=== PATIENT | female | born 1955 | race Hispanic/Latino ===

== ENCOUNTER 2020-09-23 09:57 | Emergency (ER) | payer OTHER ==
--- OUTSIDE RECORDS SUMMARY | 2020-09-23 09:59 | XMS REPORT | Continuity of Care Document ---
:[address] [facility] t Address [address] [place] [address] Dr. Segura. [address] [place] [address] Care Team Providers Name Role Phone Lab, Kar Salmoon I Attending Clinician Unavailable Problems This patient has no known problems. Allergies, Adverse Reactions, Alerts This patient has no known allergies or adverse reactions. Medications This patient has no known medications. Procedures This patient has no known procedures. Encounters Start End Encounter Admission Attending Care Care Encounter Source Date/Time Date/Time Type Type Clinicians Facility Department ID 2020-09-17 2020-09-17 Laboratory Lab, [facility] [id number] 13:16:13 13:36:13 Only Fam Pob I [facility] [id number] [place] [id number] [place] [phone] nal [address] One Results This patient has no known results.
--- OUTSIDE RECORDS SUMMARY | 2020-09-23 09:59 | XMS REPORT | Summary of Care ---
:1955 Author Organization [facility] Address [address] [place] [id number] Care Team Providers Name Role Phone Pcp, Patient Does Not Have A Primary Care Provider +[id number] Reason for Visit Reason Comments Cough Fever low grade 99 to 100.0 Chills Encounter Details Date Type Department Care Team Description 09/17/2020 Laboratory Only [facility] Kimmy Mike, LICENSED MARRIAGE AND FAMILY THERAPIST [address] [facility] [address] [place] [address] Exposure to Medicine - [facility], Adc Fam Pob I SARS-associated [address] [facility] coronaviru s ([address] Dx) [place] [address] Allergies Not on Filedocumented as of this encounter (statuses as of 09/17/2020) Medications Not on filedocumented as of this encounter (statuses as of 09/17/2020) Active Problems Not on filedocumented as of this encounter (statuses as of 09/17/2020) Social History Tobacco Use Types Packs/Day Years Used Date Never Assessed Sex Assigned at Date Recorded Not on file COVID-19 Exposure Response Date Recorded In the last month, have you been in contact with Yes 09/17/2020 1:20 PM EARRING MAKER someone who was confirmed or suspected to have Coronavirus / COVID-19? documented as of this encounter Last Filed Vital Signs Not on filedocumented in this encounter Nursing Notes Maricruz Tolbert, RITO - 09/17/2020 1:00 PM CSTTori Sylvester is a 65 year old female here for a Rule Out Covid-19 Nasopharyngeal Swab. Patient educated on plan of care for visit, swabbing technique, risks and benefits of test and length of time to receive results. Verbal consent obtained to perform test. CDC Fact Sheet for Patients provided to patient. All droplet and contact precautions taken with appropriate PPE worn while interacting with patient. - Goggles - N95 Mask - Gloves - Gown RR=18 O2 Sat=96% Patient swabbed using appropriate nasopharyngeal technique, and patient tolerated well. Patient was discharged in stable condition. Maricruz Kinney RN 09/17/2020 1:22 PM ING MAKER documented in this encounter Plan of Treatment Name Type Priority Associated Diagnoses Order S [place] COVID-19 (MOLECULAR LAB Routine Exposure to Expected : 09/17/2020, TESTING SARS-associated Expires: 021 NUCLEIC ACID coronavirus AMPLIFICATION) Health Maintenance Due Date Last Done Comments HEPATITIS C (HCV) SCREEN 1955 Depression Screening 1966 DTaP,Tdap,and Td Vaccines (1 - Tdap) 1973 Breast Cancer Screening (MAMMOGRAM) 1994 COLON CANCER SCREENING ANNUAL FIT/FOBT 2004 COLON CANCER SCREENING FIT DNA EVERY 3 YEARS 2004 COLON CANCER SCREENING SIGMOIDOSCOPY EVERY 5 YEARS 2004 COLONOSCOPY 2004 Colorectal Cancer Screening 2004 Zoster Recombinant Vaccine (SHINGRIX) (1 of 2) 2004 Medicare Wellness Visit 2019 Osteoporosis Screening 2019 PNEUMOCOCCAL VACCINES 65+ (1 of 1 - PPSV23) 2019 INFLUENZA VACCINE (#1) 2020 documented as of this encounter Results Not on filedocumented in this encounter Visit Diagnoses Diagnosis Exposure to SARS-associated coronavirus - Primary documented in this encounter Additional Health Concerns Infection Onset Date Last Indicated Resolved Time COVID-19 Rule Out 09/17/2020 09/17/2020 documented as of this encounter Insurance Payer Benefit Plan / Subscriber ID Effective Dates Phone Addre ss Type [employer] [id number] 2019-Present Medicare Adv spring HMO documented as of this encounter
[2020-09-23] MEDS ORDERED: NA CHLORIDE 0.9% 1,000 ML ONE (12:03)
[2020-09-23 12:43] LABS: Absolute Lymphocytes (CBC) 0.6 K/uL (0.7-4.9); Basophils % 0.3 % (0-1.3); Hematocrit 34.1 % (36.0-45.0); Lymphocytes % 13.2 % (15.3-44.8); MPV 9.1 fL (7.6-11.3); RBC Red Blood Cell Count 4.17 M/uL (3.86-4.86)
[2020-09-23 12:53] LABS: Protime INR 1.13
--- NOTE | 2020-09-23 13:41 | RAD REPORT ---
EXAM DESCRIPTION: Devika Single View09/23/2020 11:51 am CLINICAL HISTORY: sob COMPARISON: July 2020 FINDINGS: Dcmc-da-lpamievy bilateral pulmonary opacities Heart is normal size IMPRESSION: Mild to moderate bilateral pulmonary opacities likely pneumonia
[2020-09-23 15:35] LABS: Urine Blood TRACE (NEG); Urine Glucose NEGATIVE (NEG); Urine Protein NEGATIVE (NEG); Urine Specific Gravity 1.005 (1.005-1.030); Urine pH 5.5 (5.0-7.0)
[2020-09-23 16:01] LABS: ALT/SGPT 133 U/L (12-78); AST/SGOT 227 U/L (15-37); Albumin 3.5 g/dL (3.4-5.0); Alkaline Phosphatase 189 U/L (45-117); BUN Blood Urea Nitrogen 19 mg/dL (7-18); Bicarbonate 25 mmol/L (21-32); Bilirubin Direct 0.2 mg/dL (0-0.2); Bilirubin Total 0.5 mg/dL (0.2-1.0); Ferritin 553.5 ng/mL (8-388); Glucose Level 121 mg/dL (74-106); Lipase 172 U/L (73-393); Potassium 3.1 mmol/L (3.5-5.1); Sodium Level 138 mmol/L (136-145); Troponin (Emerg Dept Use Only) < 0.02 ng/mL (0.0-0.045)
[2020-09-23] MEDS ORDERED: CEFTRIAXONE/SWI 1gm 1 GM/10 ML SYR ONE (16:09)
--- NOTE | 2020-09-23 16:13 | ER ---
Nurse's Notes [facility] Name: Tori Sylvester Age: 65 yrs Sex: Female : 1955 Arrival Date: 09/23/2020 Time: 10:00 Bed 14 Private MD: Diagnosis: Urinary tract infection, site not specified;Pneumonia due to SARS-associated coronavirus Presentation: 09/23 10:12 Chief complaint: Patient states: + COVID on 09/17/20. Pt reports that since she was ss diagnosed with COVID she has been running a 99-100.0 fever since and now her O2 goes down to 91% at times and she is fatigued. Coronavirus screen: Client reports previous positive COVID test result. Date of collection: September 17, 2020. Ebola Screen: Patient denies exposure to infectious person. Patient denies travel to an Ebola-affected area in the 21 days before illness onset. Initial Sepsis Screen: Does the patient meet any 2 criteria? No. Patient's initial sepsis screen is negative. Does the patient have a suspected source of infection? No. Patient's initial sepsis screen is negative. Risk Assessment: Do you want to hurt yourself or someone else? Patient reports no desire to harm self or others. Onset of symptoms was September 14, 2020. 10:12 Method Of Arrival: Ambulatory ss 10:12 Acuity: CHER 3 ss Historical: - Allergies: 10:18 Levofloxacin; ss - PMHx: 10:18 GERD; High Cholesterol; Hypertension; ss 16:09 Asthma; Uterine Prolapse; vg1 - PSHx: 10:18 Cholecystectomy; Tubal ligation; ss - Immunization history:: Adult Immunizations up to date. - Social history:: Smoking status: Patient denies any tobacco usage or history of. Screenin:24 Abuse screen: Denies threats or abuse. Denies injuries from another. Nutritional ph screening: No deficits noted. Tuberculosis screening: No symptoms or risk factors identified. Fall Risk None identified. Assessment: 12:23 General: Appears in no apparent distress. comfortable, well groomed, Behavior is calm, ph cooperative, appropriate for age, Reports fever for > 3 days. Pain: Complains of pain in "body aches". Neuro: Level of Consciousness is awake, alert, obeys commands, Oriented to person, place, time, situation, Reports dizziness, weakness. Cardiovascular: Reports fatigue, lightheadedness, shortness of breath, Denies chest pain, Capillary refill < 3 seconds in bilateral fingers Patient's skin is warm and dry. Respiratory: Reports shortness of breath at rest cough that is Airway is patent Respiratory effort is even, unlabored, Respiratory pattern is regular, symmetrical. GI: No signs and/or symptoms were reported involving the gastrointestinal system. Derm: Skin is intact, Skin is pink, warm \\T\\ dry. Musculoskeletal: Circulation, motion, and sensation intact. Range of motion: intact in all extremities. 12:40 Reassessment: Inside lab called spoke with Collins stated did not receive lactate for vg1 patient. 13:15 Reassessment: Lactate drawn and sent. vg1 16:39 Cardiovascular: Rhythm is sinus tachycardia. vg1 16:48 Reassessment: Patient up for d/c. Awaiting provider to give patient disposition vg1 instructions. Vital Signs: 10:12 BP 138 / 64; Pulse 118; Resp 18; Temp 98.3(TE); Pulse Ox 95% on R/A; Weight 72.57 kg; ss Height 5 ft. 1 in. (154.94 cm); Pain 0/10; 12:25 BP 124 / 70; Pulse 101; Resp 20; Pulse Ox 93% on R/A; ph 13:40 BP 121 / 62; Pulse 94; Resp 20; Pulse Ox 93% on R/A; ph 15:30 BP 130 / 65; Pulse 100; Resp 22; Pulse Ox 94% on R/A; vg1 16:00 BP 133 / 63; Pulse 100; Resp 22; Pulse Ox 93% on R/A; vg1 16:30 BP 121 / 68; Pulse 99; Resp 24; Pulse Ox 93% on R/A; vg1 10:12 Body Mass Index 30.23 (72.57 kg, 154.94 cm) ED Course: 10:00 Patient arrived in ED. rg4 10:18 Triage completed. ss 10:18 Arm band placed on left wrist. ss 11:04 Bob Hall NP is PHCP. pm1 11:04 Juan Sainz MD is Attending Physician. pm1 11:11 Sarah Bowens, RITO is Primary Nurse. ph 11:51 CXR XRAY In Process Unspecified. EDMS 12:23 Initial lab(s) drawn, by me, sent to lab. EKG done, by ED staff. Inserted saline lock: ph 22 gauge in right antecubital area, using aseptic technique. Blood collected. 12:25 Patient has correct armband on for positive identification. Bed in low position. Call ph light in reach. Side rails up X 1. Pulse ox on. NIBP on. Door closed. Noise minimized. Warm blanket given. PO fluids given. 14:06 Primary Nurse role handed off by Sarah Bowens RN vg1 14:06 Lenka Muro, RN is Primary Nurse. vg1 16:38 No provider procedures requiring assistance completed. vg1 16:55 IV discontinued, intact, bleeding controlled, No redness/swelling at site. Pressure vg1 dressing applied. Administered Medications: 12:22 Drug: NS 0.9% 1000 ml Route: IV; Rate: 1000 ml; Site: right antecubital; ph 14:13 Follow up: IV Status: Completed infusion; IV Intake: 1000ml vg1 16:08 Drug: Rocephin 1 grams Route: IV; Rate: calculated rate; Site: right antecubital; vg1 16:40 Follow up: Response: No adverse reaction vg1 17:00 Drug: Decadron - Dexamethasone 10 mg Route: IVP; Site: right antecubital; vg1 17:01 Follow up: Response: Medication administered at discharge. vg1 Intake: 14:13 IV: 1000ml; Total: 1000ml. vg1 Outcome: 16:12 Discharge ordered by MD. pm1 17:01 Discharged to home ambulatory, with family. vg1 17:01 Condition: good 17:01 Discharge instructions given to patient, family, Instructed on discharge instructions, follow up and referral plans. medication usage, Demonstrated understanding of instructions, follow-up care, medications, Prescriptions given X 4. 17:25 Patient left the ED. vg1 Signatures: Dispatcher [employer] EDAK Erica Person RN RN Sarah Bowens RN RN Bob Hall, CLIENT RELATIONS ASSOCIATE CLIENT RELATIONS ASSOCIATE pm1 Christelle Muro rg4 Lenka Muro RN RN vg1
--- NOTE | 2020-09-23 16:13 | EDPHYS ---
Physician Documentation [facility] Name: Tori Sylvester Age: 65 yrs Sex: Female : 1955 Arrival Date: 09/23/2020 Time: 10:00 Bed 14 Private MD: ED Physician Juan Sainz HPI: 09/23 11:29 This 65 yrs old Female presents to ER via Ambulatory with complaints of Fever, pm1 Cough, Covid+. 11:29 The patient or guardian reports cough, with no sputum. Onset: The symptoms/episode pm1 began/occurred 8 day(s) ago. Severity of symptoms: in the emergency department the symptoms are unchanged, despite medications given by her PCP. Modifying factors: The symptoms are alleviated by nothing, the symptoms are aggravated by nothing. Associated signs and symptoms: Pertinent positives: fever, Pertinent negatives: chest pain, diarrhea, nausea, sore throat, vomiting, shortness of breath. Patient with onset of fever and cough Michelle. Diagnosed with covid on 09/17. Historical: - Allergies: 10:18 Levofloxacin; ss - PMHx: 10:18 GERD; High Cholesterol; Hypertension; ss 16:09 Asthma; Uterine Prolapse; vg1 - PSHx: 10:18 Cholecystectomy; Tubal ligation; ss - Immunization history:: Adult Immunizations up to date. - Social history:: Smoking status: Patient denies any tobacco usage or history of. ROS: 11:29 Neck: Negative for injury, pain, and swelling, Cardiovascular: Negative for chest pain, pm1 palpitations, and edema. 11:29 Abdomen/GI: Negative for abdominal pain, nausea, vomiting, diarrhea, and constipation, Back: Negative for injury and pain, MS/Extremity: Negative for injury and deformity, Skin: Negative for injury, rash, and discoloration, Neuro: Negative for headache, weakness, numbness, tingling, and seizure. 11:29 : Negative for injury, bleeding, discharge, and swelling. 11:29 Constitutional: Positive for fever, malaise, Negative for poor PO intake. 11:29 Respiratory: Positive for cough, Negative for shortness of breath. Exam: 11:29 Constitutional: This is a well developed, well nourished patient who is awake, alert, pm1 and in no acute distress. Head/Face: Normocephalic, atraumatic. 11:29 Back: No spinal tenderness. No costovertebral tenderness. Full range of motion. Skin: Warm, dry with normal turgor. Normal color with no rashes, no lesions, and no evidence of cellulitis. MS/ Extremity: Pulses equal, no cyanosis. Neurovascular intact. Full, normal range of motion. 11:29 Cardiovascular: Exam negative for acute changes, Rate: normal, Rhythm: regular, Pulses: no pulse deficits are appreciated, Edema: is not appreciated. 11:29 Respiratory: the patient does not display signs of respiratory distress, Breath sounds: are clear throughout. 11:29 Abdomen/GI: Inspection: abdomen appears normal, Palpation: abdomen is soft and non-tender, in all quadrants. 11:29 Neuro: Exam negative for acute changes, Orientation: is normal, Mentation: is normal, Motor: is normal, moves all fours. Vital Signs: 10:12 BP 138 / 64; Pulse 118; Resp 18; Temp 98.3(TE); Pulse Ox 95% on R/A; Weight 72.57 kg; ss Height 5 ft. 1 in. (154.94 cm); Pain 0/10; 12:25 BP 124 / 70; Pulse 101; Resp 20; Pulse Ox 93% on R/A; ph 13:40 BP 121 / 62; Pulse 94; Resp 20; Pulse Ox 93% on R/A; ph 15:30 BP 130 / 65; Pulse 100; Resp 22; Pulse Ox 94% on R/A; vg1 16:00 BP 133 / 63; Pulse 100; Resp 22; Pulse Ox 93% on R/A; vg1 16:30 BP 121 / 68; Pulse 99; Resp 24; Pulse Ox 93% on R/A; vg1 10:12 Body Mass Index 30.23 (72.57 kg, 154.94 cm) MDM: 11:15 Patient medically screened. [facility] 16:11 Data reviewed: vital signs. Data interpreted: Pulse oximetry: on. pm1 16:12 Counseling: I had a detailed discussion with the patient and/or guardian regarding: the pm1 historical points, exam findings, and any diagnostic results supporting the discharge/admit diagnosis, lab results, radiology results, the need for outpatient follow up, to return to the emergency department if symptoms worsen or persist or if there are any questions or concerns that arise at home. 01/02 11:25 Order name: Blood Culture Adult (2) pm09/23 11:25 Order name: BMP; Complete Time: 16:07 pm09/23 11:25 Order name: C-Reactive Protein; Complete Time: 16:07 pm09/23 11:25 Order name: CBC with Diff; Complete Time: 13:39 pm09/23 11:25 Order name: D-Dimer; Complete Time: 13:39 pm09/23 11:25 Order name: Ferritin; Complete Time: 16:07 pm09/23 11:25 Order name: Flu; Complete Time: 13:39 pm09/23 11:25 Order name: Lactate; Complete Time: 13:39 pm09/23 11:25 Order name: LFT's; Complete Time: 16:07 pm09/23 11:25 Order name: Lipase; Complete Time: 16:07 pm09/23 11:25 Order name: Procalcitonin; Complete Time: 13:39 pm09/23 11:25 Order name: PT-INR; Complete Time: 13:39 pm09/23 11:25 Order name: Ptt, Activated; Complete Time: 13:39 pm09/23 11:25 Order name: Strep; Complete Time: 13:39 pm09/23 11:25 Order name: Troponin (emerg Dept Use Only); Complete Time: 16:07 pm09/23 11:25 Order name: CXR XRAY; Complete Time: 13:58 pm09/23 11:25 Order name: EKG; Complete Time: 11:26 pm09/23 11:25 Order name: Cardiac monitoring; Complete Time: 12:22 pm09/23 11:25 Order name: Droplet/Contact Precautions; Complete Time: 12:22 pm09/23 11:25 Order name: EKG - Nurse/Tech; Complete Time: 12:22 pm09/23 11:25 Order name: IV Start; Complete Time: 12:23 pm09/23 11:25 Order name: Labs collected and sent; Complete Time: 12:23 pm09/23 11:25 Order name: O2 Per Protocol; Complete Time: 12:23 pm09/23 11:25 Order name: O2 Sat Monitoring; Complete Time: 12:23 pm1 09/23 11:25 Order name: Urine Dipstick-Ancillary (obtain specimen); Complete Time: 14:52 pm1 09/23 12:51 Order name: Throat Culture [facility] 09/23 15:00 Order name: Urine Dipstick--Ancillary (enter results); Complete Time: 16:07 eb Administered Medications: 12:22 Drug: NS 0.9% 1000 ml Route: IV; Rate: 1000 ml; Site: right antecubital; ph 14:13 Follow up: IV Status: Completed infusion; IV Intake: 1000ml vg1 16:08 Drug: Rocephin 1 grams Route: IV; Rate: calculated rate; Site: right antecubital; vg1 16:40 Follow up: Response: No adverse reaction vg1 17:00 Drug: Decadron - Dexamethasone 10 mg Route: IVP; Site: right antecubital; vg1 17:01 Follow up: Response: Medication administered at discharge. [facility] Disposition: 09/24 07:30 Co-signature as Attending Physician, Juan Sainz MD I agree with the assessment and juliano plan of care. Disposition: 09/23/20 16:12 Discharged to Home. Impression: Urinary tract infection, site not specified, Pneumonia due to SARS-associated coronavirus. - Condition is Stable. - Discharge Instructions: Community-Acquired Pneumonia, Adult, Urinary Tract Infection, Adult, COVID-19. - Prescriptions for Prednisone 20 mg Oral Tablet - take 3 tablet by ORAL route once daily for 5 days; 15 tablet. Augmentin 875- 125 mg Oral Tablet - take 1 tablet by ORAL route every 12 hours for 10 days; 20 tablet. Zithromax Z- Lucius 250 mg Oral Tablet - take 1 tablet by ORAL route as directed for 5 days Day 1 - take two (2) tablets one time. Day 2, 3, 4 , 5 take one (1) tablet once daily.; 6 tablet. Albuterol Sulfate 90 mcg/actuation - inhale 1-2 puff by INHALATION route every 4-6 hours; 1 Inhaler. Albuterol Sulfate 2.5 mg /3 mL (0.083 %) Inhalation Solution for Nebulization - inhale 1 unit by NEBULIZATION route every 8 hours As needed; 1 box. Guaifenesin AC 10- 100 mg/5 mL Oral Liquid - take 10 milliliter by ORAL route every 4 hours As needed; 240 milliliter. - Medication Reconciliation Form, Thank You Letter, Antibiotic Education, Prescription Opioid Use form. - Follow up: Emergency Department; When: As needed; Reason: Worsening of condition. Follow up: Private Physician; When: 2 - 3 days; Reason: Recheck today's complaints, Continuance of care, Re-evaluation by your physician. - Problem is new. - Symptoms have improved. Signatures: Dispatcher [employer] EDMS Juan Sainz, Erica Lew MD, cha, RN RN Sarah Bowens, RN RN Bob Hall, JONATHON FURNACE INSTALLER HELPER pm1 Lenka Muro RN RN vg1 Corrections: (The following items were deleted from the chart) 09/23 17:25 16:12 09/23/2020 16:12 Discharged to Home. Impression: Urinary tract infection, site vg1 not specified; Pneumonia due to SARS-associated coronavirus. Condition is Stable. Forms are Medication Reconciliation Form, Thank You Letter, Antibiotic Education, Prescription Opioid Use. Follow up: Emergency Department; When: As needed; Reason: Worsening of condition. Follow up: Private Physician; When: 2 - 3 days; Reason: Recheck today's complaints, Continuance of care, Re-evaluation by your physician. Problem is new. Symptoms have improved. pm1
[2020-09-23] MEDS ORDERED: dexAMETHasone 10 MG/ML VIAL ONE (17:02)
[2020-09-23 18:09] VITALS: TEMP 98.3
[2020-09-23 18:14] VITALS: BP 133/63; O2SAT 93
--- NOTE | 2020-09-24 15:29 | EKG ---
Test Date: 2020-09-23 Test Time: 12:23:42 Ux Lead: LELIA MEASUREMENT RESULTS: Intervals: Rate: 106 TN: 146 QRSD: 86 QT: 338 QTc: 448 [place]: P: 49 TN: 146 QRS: 34 T: -42 INTERPRETIVE STATEMENTS: Sinus tachycardia ST & T wave abnormality, consider inferior ischemia Abnormal ECG Compared to ECG 11/23/2012 07:22:47 Possible ischemia now present Sinus rhythm no longer present Atrial premature complex(es) no longer present ST (T wave) deviation still present Electronically Signed On 09-24-20 15:26:38 OUTBOARD SYSTEM OPERATOR by Brigido Geronimo
== END 2020-09-23 17:25 | disposition home or self-care (01) ==
LOC: ER 09:57
DX: U07.1 COVID-19 (principal); J12.89 Other viral pneumonia; N39.0 Urinary tract infection, site not specified; I10 Essential (primary) hypertension; Z88.3 Allergy status to other anti-infective agents
CPT/HCPCS: 96361; 93005; 87040 ×2; 87070; 85025; 80048; 36415; 85610; 85379; 80076; 87081; 83605; 85730; 81003; 84484; 82728; 83690; 84145; 86140; 87804 ×2; 71045; 96375; 96374; 99285; J1100; J0696; J7030

== ENCOUNTER 2020-09-28 | Emergency (ER) | payer OTHER ==
--- OUTSIDE RECORDS SUMMARY | 2020-09-28 12:02 | XMS REPORT | Continuity of Care Document ---
:1955 Author Organization [facility] t Address [address] [place] [address] Dr. Segura. [address] [place] [address] Care Team Providers Name Role Phone Lab, Kar Salomon I Attending Clinician Unavailable Problems This patient has no known problems. Allergies, Adverse Reactions, Alerts This patient has no known allergies or adverse reactions. Medications This patient has no known medications. Procedures This patient has no known procedures. Encounters Start End Encounter Admission Attending Care Care Encounter Source Date/Time Date/Time Type Type Clinicians Facility Department ID 2020-09-17 2020-09-17 Laboratory Lab, [facility] [id number] 13:16:13 13:36:13 Only Fam Pob I [facility] [id number] [place] [id number] [place] [phone] nal 0[address] One Results This patient has no known results.
--- NOTE | 2020-09-28 13:46 | EDPHYS ---
Physician Documentation [facility] Name: Tori Sylvester Age: 65 yrs Sex: Female : 1955 Arrival Date: 09/28/2020 Time: 11:59 Bed 18 Private MD: ED Physician Benny Mejía HPI: 09/28 13:40 This 65 yrs old Female presents to ER via Ambulatory with complaints of Covid kb + Back Pain. 13:40 The patient or guardian reports flu symptoms, myalgias, fatigue. Onset: The kb symptoms/episode began/occurred last week. Severity of symptoms: At their worst the symptoms were moderate, in the emergency department the symptoms have improved. Modifying factors: The symptoms are alleviated by nothing, the symptoms are aggravated by nothing. Associated signs and symptoms: Pertinent positives: fatigue, dry mouth, Pertinent negatives: chest pain, diarrhea, ear ache, fever, nausea, rhinorrhea, sore throat, vomiting. The patient has not experienced similar symptoms in the past. The patient has been recently seen at the [facility] Emergency Department. Pt states she came in because she is out of the steroids they gave her last week for covid pneumonia so she wanted to see if she needed more. States she is taking antibiotics still. 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 Reports fatigue and dry mouth only, denies any other symptoms at this time. Asked about how often she is supposed to be using the inhaler. Pt educated on medication use and symptomatic treatment at home. Pt denies shortness of breath. Pt states she hasn't been eating a lot because she didn't know what she could eat. Pt informed that she can eat anything she would like. Educated to return for chest pain, shortness of breath, or any other concerns. Verbal understanding of all instructions received. . Historical: - Allergies: 12:19 Levofloxacin; em - PMHx: 12:19 Asthma; GERD; High Cholesterol; Hypertension; Uterine prolapse; em - PSHx: 12:19 Cholecystectomy; Tubal ligation; em - Immunization history:: Adult Immunizations up to date. - Social history:: Smoking status: Patient denies any tobacco usage or history of. ROS: 13:40 Neck: Negative for injury, pain, and swelling, Cardiovascular: Negative for chest pain, kb palpitations, and edema, Respiratory: Negative for shortness of breath, cough, wheezing, and pleuritic chest pain, Abdomen/GI: Negative for abdominal pain, nausea, vomiting, diarrhea, and constipation, MS/Extremity: Negative for injury and deformity, Skin: Negative for injury, rash, and discoloration, Neuro: Negative for headache, weakness, numbness, tingling, and seizure. 13:40 Constitutional: Positive for fatigue, malaise, poor PO intake, Negative for body aches, kb chills, fever, weight loss. Exam: 13:45 Constitutional: This is a well developed, well nourished patient who is awake, alert, kb and in no acute distress. Head/Face: Normocephalic, atraumatic. Chest/axilla: Normal chest wall appearance and motion. Nontender with no deformity. No lesions are appreciated. Cardiovascular: Regular rate and rhythm with a normal S1 and S2. No gallops, murmurs, or rubs. Normal PMI, no JVD. No pulse deficits. Respiratory: Lungs have equal breath sounds bilaterally, clear to auscultation and percussion. No rales, rhonchi or wheezes noted. No increased work of breathing, no retractions or nasal flaring. Abdomen/GI: Soft, non-tender, with normal bowel sounds. No distension or tympany. No guarding or rebound. No evidence of tenderness throughout. Skin: Warm, dry with normal turgor. Normal color with no rashes, no lesions, and no evidence of cellulitis. MS/ Extremity: Pulses equal, no cyanosis. Neurovascular intact. Full, normal range of motion. Neuro: Awake and alert, GCS 15, oriented to person, place, time, and situation. Cranial nerves II-XII grossly intact. Motor strength 5/5 in all extremities. Sensory grossly intact. Cerebellar exam normal. Normal gait. Vital Signs: 12:14 BP 157 / 71; Pulse 121; Resp 20; Temp 98.4(O); Pulse Ox 97% on R/A; Weight 72.12 kg; em Height 5 ft. 1 in. (154.94 cm); Pain 0/10; 13:29 BP 148 / 77; Pulse 112; Resp 18; Pulse Ox 97% on R/A; ll1 14:00 Pulse 105; Resp 17; ll1 12:14 Body Mass Index 30.04 (72.12 kg, 154.94 cm) em MDM: 13:29 Patient medically screened. kb 13:45 Data reviewed: vital signs, nurses notes. Data interpreted: Pulse oximetry: on room air kb is 97 %. Interpretation: normal. Counseling: I had a detailed discussion with the patient and/or guardian regarding: the historical points, exam findings, and any diagnostic results supporting the discharge/admit diagnosis, the need for outpatient follow up, a family practitioner, to return to the emergency department if symptoms worsen or persist or if there are any questions or concerns that arise at home. Administered Medications: No medications were administered Disposition: 15:59 Co-signature as Attending Physician, Benny Mejía MD I agree with the assessment and kdr plan of care. Disposition: 09/28/20 13:45 Discharged to Home. Impression: Coronavirus infection, unspecified - encounter for education . - Condition is Stable. - Discharge Instructions: Viral Respiratory Infection, [id number]-Cd-[id number], COVID-19. - Medication Reconciliation Form, Thank You Letter, Antibiotic Education, Prescription Opioid Use form. - Follow up: Emergency Department; When: As needed; Reason: Worsening of condition. Follow up: Private Physician; When: 2 - 3 days; Reason: Recheck today's complaints, Continuance of care, Re-evaluation by your physician. Signatures: Ginette Rene, ELECTRICAL APPLIANCE MECHANIC-C ELECTRICAL APPLIANCE MECHANIC-Ckb Benny Mejía MD MD [facility] Rhys Robison RN RN Jose Villar RN RN ll1 Corrections: (The following items were deleted from the chart) 13:44 13:40 Constitutional: Negative for fever, chills, and weight loss, Neck: Negative for kb injury, pain, and swelling, Cardiovascular: Negative for chest pain, palpitations, and edema, Respiratory: Negative for shortness of breath, cough, wheezing, and pleuritic chest pain, Abdomen/GI: Negative for abdominal pain, nausea, vomiting, diarrhea, and constipation, MS/Extremity: Negative for injury and deformity, Skin: Negative for injury, rash, and discoloration, Neuro: Negative for headache, weakness, numbness, tingling, and seizure, kb 13:45 13:40 Constitutional: Positive for fatigue, malaise, Negative for body aches, chills, kb fever, poor PO intake, weight loss, kb 14:01 13:45 09/28/2020 13:45 Discharged to Home. Impression: Coronavirus infection, ll1 unspecified - encounter for education . Condition is Stable. Forms are Medication Reconciliation Form, Thank You Letter, Antibiotic Education, Prescription Opioid Use. Follow up: Emergency Department; When: As needed; Reason: Worsening of condition. Follow up: Private Physician; When: 2 - 3 days; Reason: Recheck today's complaints, Continuance of care, Re-evaluation by your physician. kb
--- NOTE | 2020-09-28 13:46 | ER ---
Nurse's Notes [facility] Name: Tori Sylvester Age: 65 yrs Sex: Female : 1955 Arrival Date: 09/28/2020 Time: 11:59 Bed 18 Private MD: Diagnosis: Coronavirus infection, unspecified-encounter for education Presentation: 09/28 12:14 Chief complaint: Patient states: generalized weakness for 5 days, was diagnosed with em covid pneumonia on Friday, has ran out of steroids, also was getting treated for UTI, has not finished antibiotics. Coronavirus screen: Client reports previous positive COVID test result. Date of collection: September 23, 2020. Ebola Screen: Patient negative for fever greater than or equal to 101.5 degrees Fahrenheit, and additional compatible Ebola Virus Disease symptoms Patient denies exposure to infectious person. Patient denies travel to an Ebola-affected area in the 21 days before illness onset. No symptoms or risks identified at this time. Initial Sepsis Screen: Does the patient meet any 2 criteria? HR > 90 bpm. No. Patient's initial sepsis screen is negative. Does the patient have a suspected source of infection? Yes: Productive cough/pneumonia. Risk Assessment: Do you want to hurt yourself or someone else? Patient reports no desire to harm self or others. Onset of symptoms was September 23, 2020. 12:14 Method Of Arrival: Ambulatory em 12:14 Acuity: CHER 2 em Historical: - Allergies: 12:19 Levofloxacin; em - PMHx: 12:19 Asthma; GERD; High Cholesterol; Hypertension; Uterine prolapse; em - PSHx: 12:19 Cholecystectomy; Tubal ligation; em - Immunization history:: Adult Immunizations up to date. - Social history:: Smoking status: Patient denies any tobacco usage or history of. Screenin:00 Abuse screen: Denies threats or abuse. Nutritional screening: No deficits noted. ll1 Tuberculosis screening: No symptoms or risk factors identified. Fall Risk None identified. Total Kirkland Fall Scale indicates No Risk (0-24 pts). Assessment: 13:59 General: Appears ill, Behavior is calm, cooperative, appropriate for age. Pain: Denies ll1 pain. Neuro: No deficits noted. Cardiovascular: No deficits noted. Respiratory: Reports cough that is Airway is patent Trachea midline Respiratory effort is even, unlabored, Respiratory pattern is regular, symmetrical, Breath sounds are clear bilaterally. GI: No deficits noted. Vital Signs: 12:14 BP 157 / 71; Pulse 121; Resp 20; Temp 98.4(O); Pulse Ox 97% on R/A; Weight 72.12 kg; em Height 5 ft. 1 in. (154.94 cm); Pain 0/10; 13:29 BP 148 / 77; Pulse 112; Resp 18; Pulse Ox 97% on R/A; ll1 14:00 Pulse 105; Resp 17; ll1 12:14 Body Mass Index 30.04 (72.12 kg, 154.94 cm) em ED Course: 11:59 Patient arrived in ED. ds1 12:18 Triage completed. em 12:19 Arm band placed on. em 13:29 Ginette Rene FNP-C is PHCP. kb 13:29 Benny Mejía MD is Attending Physician. kb 13:58 Jose Villar, RN is Primary Nurse. ll1 14:00 Patient has correct armband on for positive identification. Bed in low position. Call ll1 light in reach. Side rails up X 1. Pulse ox on. NIBP on. 14:00 No provider procedures requiring assistance completed. Patient did not have IV access ll1 during this emergency room visit. Administered Medications: No medications were administered Outcome: 13:45 Discharge ordered by MD. kb 14:00 Discharged to home ambulatory. ll1 14:00 Condition: stable 14:00 Discharge instructions given to patient, Instructed on discharge instructions, follow up and referral plans. Demonstrated understanding of instructions, follow-up care. 14:01 Patient left the ED. ll1 Signatures: Ginette Rene FNP-C FNP-Ckb Munoz, Edgar, RN RN [facility] [place] [address] Jose Villar, RN RN [facility]
== END 2020-09-28 14:01 | disposition home or self-care (01) ==
CPT/HCPCS: 99283

== ENCOUNTER 2020-12-10 09:42 | Emergency (ER) | payer OTHER ==
--- OUTSIDE RECORDS SUMMARY | 2020-12-10 09:44 | XMS REPORT | Continuity of Care Document ---
:1955 Author Organization [facility] t Address [address] [place] [address] [address] [place] [address] Care Team Providers Name Role Phone Lab, [...] Facility Department ID 2020-09-17 2020-09-17 Laboratory Lab, [facility] [id number] 13:16:13 13:36:13 [address] I [facility] [id number] [place] [id number] Noel [phone] [address] Results This patient has no known results.
--- NOTE | 2020-12-10 10:53 | ER ---
Nurse's Notes [facility] Name: Tori Sylvester Age: 65 yrs Sex: Female : 1955 Arrival Date: 12/10/2020 Time: 09:46 Bed 15 Private MD: Diagnosis: Rash and other nonspecific skin eruption-bilateral palms scaling rash Presentation: 12/10 10:22 Chief complaint: Patient states: hand have been peeling, and feel swollen X 2weeks, has iw been putting lotion but not helping, states they got like that in August when she had COVID , was tested 2 weeks ago and was negative. Coronavirus screen: At this time, the client does not indicate any symptoms associated with coronavirus-19. Ebola Screen: Patient negative for fever greater than or equal to 101.5 degrees Fahrenheit, and additional compatible Ebola Virus Disease symptoms Patient denies exposure to infectious person. Patient denies travel to an Ebola-affected area in the 21 days before illness onset. No symptoms or risks identified at this time. Initial Sepsis Screen: Does the patient meet any 2 criteria? No. Patient's initial sepsis screen is negative. Does the patient have a suspected source of infection? No. Patient's initial sepsis screen is negative. Risk Assessment: Do you want to hurt yourself or someone else? Patient reports no desire to harm self or others. Onset of symptoms was November 29, 2020. 10:22 Method Of Arrival: Ambulatory iw 10:22 Acuity: CHER 4 iw Triage Assessment: 11:00 General: Appears in no apparent distress. Behavior is calm, cooperative. iw Historical: - Allergies: 10:24 Levofloxacin; iw - Home Meds: 10:24 diltiazem HCl 240 mg oral Tb24 once daily [Active]; gemfibrozil 600 mg Oral tab 1 tab 2 iw times per day [Active]; losartan-hydrochlorothiazide 100-12.5 mg Oral tab 1 tab once daily [Active]; pantoprazole 40 mg Oral TbEC 1 tab once daily [Active]; - PMHx: 10:24 Asthma; GERD; High Cholesterol; Hypertension; Uterine prolapse; iw - PSHx: 10:24 Cholecystectomy; Tubal ligation; iw - Immunization history:: Adult Immunizations up to date. - Social history:: Smoking status: Patient denies any tobacco usage or history of. Patient/guardian denies using alcohol, street drugs, The patient lives with family. - Family history:: not pertinent. Screenin:12 Abuse screen: Denies threats or abuse. Denies injuries from another. Nutritional iw screening: No deficits noted. Tuberculosis screening: No symptoms or risk factors identified. Fall Risk None identified. Assessment: 10:30 General: Appears in no apparent distress. Behavior is calm, cooperative. Pain: iw Complains of pain in right hand and left hand. Neuro: Level of Consciousness is awake, alert, obeys commands, Oriented to person, place, time, situation. Respiratory: Respiratory effort is even, unlabored. 11:12 Reassessment: Patient appears in no apparent distress at this time. Patient and/or iw family updated on plan of care and expected duration. Pain level reassessed. Patient is alert, oriented x 3, equal unlabored respirations, skin warm/dry/pink. Vital Signs: 10:22 BP 152 / 84; Pulse 124; Resp 16; Temp 97.9; Pulse Ox 98% on R/A; Weight 74.39 kg; iw Height 5 ft. 1 in. (154.94 cm); 11:11 BP 138 / 66; Pulse 110; Resp 16; Pulse Ox 98% on R/A; iw 10:22 Body Mass Index 30.99 (74.39 kg, 154.94 cm) iw ED Course: 09:46 Patient arrived in ED. as 10:09 Torsten Narayan MD is Attending Physician. ma2 10:21 Helena Pyle RN is Primary Nurse. iw 10:23 Triage completed. iw 10:30 Patient has correct armband on for positive identification. iw 11:11 Arm band placed on. iw 11:12 No provider procedures requiring assistance completed. Patient did not have IV access iw during this emergency room visit. Administered Medications: No medications were administered Outcome: 10:52 Discharge ordered by . ma2 11:12 Discharged to home ambulatory. iw 11:12 Condition: good 11:12 Discharge instructions given to patient, Instructed on discharge instructions, follow up and referral plans. medication usage, Demonstrated understanding of instructions, follow-up care, medications, Prescriptions given X 2. 11:16 Patient left the ED. iw Signatures: Ashly Birmingham as Helena Pyle, RITO RN iw Alzahri, Mohammad, MD MD ma2
--- NOTE | 2020-12-10 10:54 | EDPHYS ---
Physician Documentation [facility] Name: Tori Sylvester Age: 65 yrs Sex: Female : 1955 Arrival Date: 12/10/2020 Time: 09:46 Bed 15 Private MD: ED Physician Torsten Narayan HPI: 12/10 10:49 This 65 yrs old Female presents to ER via Ambulatory with complaints of Hand ma2 Swelling, Hand Pain. 10:49 The patient or guardian reports a rash. The complaints affect the left hand diffusely, ma2 right hand diffusely. Onset: The symptoms/episode began/occurred gradually, 5 month(s) ago. Associated signs and symptoms: Pertinent negatives: fever, nausea, numbness distally, tingling distally. Severity of symptoms: At their worst the symptoms were mild, in the emergency department the symptoms are unchanged. The patient has not experienced similar symptoms in the past. Historical: - Allergies: 10:24 Levofloxacin; iw - Home Meds: 10:24 diltiazem HCl 240 mg oral Tb24 once daily [Active]; gemfibrozil 600 mg Oral tab 1 tab 2 iw times per day [Active]; losartan-hydrochlorothiazide 100-12.5 mg Oral tab 1 tab once daily [Active]; pantoprazole 40 mg Oral TbEC 1 tab once daily [Active]; - PMHx: 10:24 Asthma; GERD; High Cholesterol; Hypertension; Uterine prolapse; iw - PSHx: 10:24 Cholecystectomy; Tubal ligation; iw - Immunization history:: Adult Immunizations up to date. - Social history:: Smoking status: Patient denies any tobacco usage or history of. Patient/guardian denies using alcohol, street drugs, The patient lives with family. - Family history:: not pertinent. ROS: 10:49 Constitutional: Negative for fever, chills, and weight loss. ma2 10:49 All other systems are negative. Exam: 10:49 Constitutional: This is a well developed, well nourished patient who is awake, alert, ma2 and in no acute distress. Chest/axilla: Normal chest wall appearance and motion. Nontender with no deformity. No lesions are appreciated. Cardiovascular: Regular rate and rhythm with a normal S1 and S2. No gallops, murmurs, or rubs. Normal PMI, no JVD. No pulse deficits. Respiratory: Lungs have equal breath sounds bilaterally, clear to auscultation and percussion. No rales, rhonchi or wheezes noted. No increased work of breathing, no retractions or nasal flaring. Abdomen/GI: Soft, non-tender, with normal bowel sounds. No distension or tympany. No guarding or rebound. No evidence of tenderness throughout. Skin: has scaling of both hands consistent with eczema, no indurtaion or redness or warmth no swelling, Warm, dry with normal turgor. Normal color with no rashes, no lesions, and no evidence of cellulitis. Neuro: Awake and alert, GCS 15, oriented to person, place, time, and situation. Cranial nerves II-XII grossly intact. Motor strength 5/5 in all extremities. Sensory grossly intact. Cerebellar exam normal. Normal gait. Vital Signs: 10:22 BP 152 / 84; Pulse 124; Resp 16; Temp 97.9; Pulse Ox 98% on R/A; Weight 74.39 kg; iw Height 5 ft. 1 in. (154.94 cm); 11:11 BP 138 / 66; Pulse 110; Resp 16; Pulse Ox 98% on R/A; iw 10:22 Body Mass Index 30.99 (74.39 kg, 154.94 cm) iw MDM: 10:09 Patient medically screened. ma2 10:49 Differential diagnosis: hand eczema vs palm fungal infection, not involving nails, vs ma2 allergy vs irritation. Data reviewed: vital signs, nurses notes. Counseling: I had a detailed discussion with the patient and/or guardian regarding: the historical points, exam findings, and any diagnostic results supporting the discharge/admit diagnosis, the presence of at least one elevated blood pressure reading (>120/80) during this emergency department visit, the need for outpatient follow up. Response to treatment: the patient's symptoms have markedly improved after treatment. Administered Medications: No medications were administered Disposition: 12/10/20 10:52 Discharged to Home. Impression: Rash and other nonspecific skin eruption - bilateral palms scaling rash . - Condition is Stable. - Discharge Instructions: Rash, Iwfu-ye-Wwnu. - Prescriptions for Nystatin- Triamcinolone 100,000-0.1 unit/g-% Topical Cream - apply 1 application by TOPICAL route 2 times per day; 1 tube. Hydrocortisone 0.5 % Topical Cream - apply 1 application by TOPICAL route every 12 hours As needed; 30 gram. - Medication Reconciliation Form, Thank You Letter, Antibiotic Education, Prescription Opioid Use form. - Follow up: Private Physician; When: Tomorrow; Reason: Continuance of care. Signatures: Helena Pyle RN RN iw Alzahri, Mohammad, MD MD ma2 Corrections: (The following items were deleted from the chart) 11:16 10:52 12/10/2020 10:52 Discharged to Home. Impression: Rash and other nonspecific skin iw eruption - bilateral palms scaling rash . Condition is Stable. Forms are Medication Reconciliation Form, Thank You Letter, Antibiotic Education, Prescription Opioid Use. Follow up: Private Physician; When: Tomorrow; Reason: Continuance of care. ma2
[2020-12-10 11:20] VITALS: TEMP 97.9; O2SAT 98
[2020-12-10 11:22] VITALS: BP 138/66
== END 2020-12-10 11:16 | disposition home or self-care (01) ==
LOC: ER 09:42
DX: R21 Rash and other nonspecific skin eruption (principal); I10 Essential (primary) hypertension; E78.00 Pure hypercholesterolemia, unspecified; Z88.1 Allergy status to other antibiotic agents
CPT/HCPCS: 99282

== ENCOUNTER 2022-02-02 14:02 | Emergency (ER) | payer MEDICARE ==
--- OUTSIDE RECORDS SUMMARY | 2022-02-02 14:04 | XMS REPORT | Continuity of Care Document ---
:1955 Author Organization [facility] t Address [address] [place] [address] Care Team Providers Name Role Phone Lex Blair Attending Clinician Unavailable Giovana Attending Clinician Unavailable Lex ROCKWELL Attending Clinician Unavailable Lab, Fam Pob I Attending Clinician Unavailable Antonio LOYOLA Attending Clinician ANTONIO Attending Clinician Unavailable STACEYillikady Admitting Clinician Unavailable Payers Payer Name Policy Type Policy Number Effective Date Expiration Date S [facility] [id number] 2021 (MEDICARE 00:00:00 REPLACEMENT HMO) [facility]LY [facility] Jymob TUMACACORI [id number] 2019 00:00:00 [facility] [id number] 2012 OF STATE 00:00:00 Problems This patient has no known problems. Allergies, Adverse Reactions, Alerts Allergy Allergy Status Severity Reaction(s) Onset Inactive Treating Comm ents Source Name Type Date Date Clinician NO KNOWN Drug Active Univers ALLERGIE Class ity of S [facility] Social History Social Habit Start Date Stop Date Quantity Comments Source Sex Assigned At Uni versity [facility] Exposure to SARS-CoV-2 Yes [facility] [place] (event) [facility] Smoking Status Start Date Stop Date Source Unknown if ever smoked Universit y [facility] Medications This patient has no known medications. Procedures This patient has no known procedures. Encounters Start End Encounter Admission Attending Care Care Encounter Source Date/Time Date/Time Type Type Clinicians Facility Department ID 2022-01-23 Outpatient Blair, STLMLC STLMLC [id number] Common 10:07:03 [facility] 2022-01-23 2022-01-23 ambulatory STLMLC STLMLC [id number] Common 00:00:00 00:00:00 [facility] 2022-01-23 2022-01-23 ambulatory STLMLC STLMLC [id number] Common 00:00:00 00:00:00 [facility] 2021-10-23 2021-10-23 Outpatient BWilliams [facility] [id number] Devoted 06:54:00 06:54:00 0[facility] 2021-09-19 2021-09-19 Outpatient BWmazinams [facility] [id number] [facility] 01:04:00 01:04:00 1229 [facility] 2021-08-01 2021-08-01 [id number] 12:01:00 12:01:00 1110 [facility] l [facility] 2021-01-02 2021-01-02 [id number] Univers 10:00:00 10:00:00 DEEDEE [facility] 2020-12-12 2020-12-12 [facility] [id number] Univers 15:50:00 15:50:00 [facility] 2020-09-17 2020-09-17 Laboratory Lab, [facility] [id number] 13:16:13 13:36:13 Only Fam [facility] [id number] [place] [id number] Professio [phone] [place] [address] [address] 2020-09-17 2020-09-17 Laboratory Lab, [facility] Fam Pob I [facility] [id number] Univers 13:16:13 13:36:13 Only [id number] [facility] [id number] Da as Professio [phone] Ar dical [address] 2020-09-17 2020-09-17 Outpatient R ANTONIO [facility] [id number] Univers 13:00:00 13:00:00 BHARGAV [facility] 2020-09-17 2020-09-17 [address]patient [address] [facility] [id number] Univers 10:00:00 10:00:00 [id number] [facility] Results This patient has no known results.
[2022-02-02 15:37] LABS: Urine Blood 1+ (Negative); Urine Glucose Negative (Negative); Urine Protein Negative (Negative)
[2022-02-02 15:54] LABS: Urine Bacteria LOADED /HPF (<20); Urine RBC <5 /HPF (NONE SEEN)
--- NOTE | 2022-02-02 16:11 | RAD REPORT ---
EXAM DESCRIPTION: RAD - Chest Single View - 02/02/2022 4:04 pm CLINICAL HISTORY: COUGH COMPARISON: Chest Single View dated 09/23/2020; Chest Pa And Lat (2 Views) dated 07/31/2020; Chest Pa A nd Lat (2 Views) dated 04/02/2019; Chest Single View dated 05/10/2017 FINDINGS: Lines: None. Lungs: Low lung volumes which are present on the prior radiograph. Likely basilar atelectasis. No def inite acute process. Pleural: No significant pleural effusions or pneumothorax. Cardiac: The heart size is within normal limits. Bones: No acute fractures. Other: IMPRESSION: Persistently low lung volumes with some associated atelectasis.
[2022-02-02] MEDS ORDERED: CEFTRIAXONE 1000 MG/VIAL ONE (16:18)
[2022-02-02] MEDS ORDERED: NA CHLORIDE 0.9% 50 ML ONE (16:18)
[2022-02-02] MEDS ORDERED: NA CHLORIDE 0.9% 2,000 ML ONE (16:18)
[2022-02-02 16:27] LABS: Absolute Lymphocytes (CBC) 0.5 K/uL (0.7-4.9); Hematocrit 35.2 % (36.0-45.0); Lymphocytes % 10.3 % (15.3-44.8); MPV 8.5 fL (7.6-11.3)
[2022-02-02 16:34] LABS: Protime INR 1.14
[2022-02-02 16:42] LABS: Albumin 4.1 g/dL (3.4-5.0); Bilirubin Direct 0.1 mg/dL (0-0.2); Bilirubin Total 0.4 mg/dL (0.2-1.0); Magnesium 1.8 mg/dL (1.8-2.4); Potassium 3.1 mmol/L (3.5-5.1); Protein, Total 8.1 g/dL (6.4-8.2); Troponin High Sensitivity 6.9 pg/mL (<58.9)
--- NOTE | 2022-02-02 17:56 | RAD REPORT ---
EXAM DESCRIPTION: CTStone Protocol - 02/02/2022 5:35 pm CLINICAL HISTORY: Flank pain, kidney stone suspected COMPARISON: No comparisons TECHNIQUE: CT of the abdomen and pelvis was performed. All CT scans are performed using dose optimization technique as appropriate and may include automated exposure control or mA/KV adjustment according to patient size. FINDINGS: Lower chest: No acute abnormality. Liver: Hepatic steatosis. Biliary: Cholecystectomy Stomach: No significant focal abnormality. Duodenum: No significant focal abnormality. Pancreas: No significant abnormality. Spleen: No significant abnormality. Adrenal: No suspicious lesions. Kidney/ureter: Bilateral pelvicaliectasis. No cindy hydronephrosis. 2 mm stone in the right kidney . Retroperitoneum: No retroperitoneal adenopathy. Vascular: No aneurysm. Atherosclerosis . Bowel: Diverticulosis without diverticulitis. Normal appendix.. Peritoneum: No ascites or free air. Bladder: Grossly unremarkable. Reproductive: No adnexal masses. Bones: No acute fracture. Other: n/a IMPRESSION: Nonobstructing stone in the right kidney. No hydronephrosis. Normal appendix.
[2022-02-02] MEDS ORDERED: POTASSIUM 25 MEQ EFFERV TAB ONE (18:21)
--- NOTE | 2022-02-02 19:17 | ER ---
Nurse's Notes [facility] Name: Tori Sylvester Age: 66 yrs Sex: Female : 1955 Arrival Date: 02/02/2022 Time: 14:12 Bed 14 Private MD: Jc Blair Diagnosis: UTI/ Urinary tract infection, site not specified Presentation: 02/02 14:31 Chief complaint: Patient states: chills, cough, urine frequency X 2 days, no pain with iw urination , is due for bladder surgery , bladder suspension. Coronavirus screen: Client presents with at least one sign or symptom that may indicate coronavirus-19. Ebola Screen: Patient negative for fever greater than or equal to 101.5 degrees Fahrenheit, and additional compatible Ebola Virus Disease symptoms Patient denies exposure to infectious person. Patient denies travel to an Ebola-affected area in the 21 days before illness onset. No symptoms or risks identified at this time. Initial Sepsis Screen: Does the patient meet any 2 criteria? HR > 90 bpm. Does the patient have a suspected source of infection?. Risk Assessment: Do you want to hurt yourself or someone else? Patient reports no desire to harm self or others. 14:31 Method Of Arrival: Ambulatory iw 14:31 Acuity: CHER 3 iw 18:23 Onset of symptoms was February 02, 2022. jd3 Historical: - Allergies: 14:33 Levofloxacin; iw - PMHx: 14:33 Asthma; GERD; High Cholesterol; Hypertension; Uterine prolapse; iw - Immunization history:: Adult Immunizations up to date. - Social history:: Smoking status: unknown. Screenin:23 Abuse screen: Denies threats or abuse. Nutritional screening: No deficits noted. jd3 Tuberculosis screening: No symptoms or risk factors identified. Fall Risk None identified. Assessment: 16:11 General: Appears in no apparent distress. comfortable, Behavior is calm, cooperative, jd3 appropriate for age, Reports chills for 1-2 days. Pain: Denies pain. Neuro: Zacarias Agitation-Sedation Scale (RASS): 0 - Alert and Calm Level of Consciousness is awake, alert, obeys commands, Oriented to person, place, time, situation. Cardiovascular: Denies chest pain, Capillary refill < 3 seconds Patient's skin is warm and dry. Rhythm is regular. Respiratory: Airway is patent Respiratory effort is even, unlabored, Respiratory pattern is regular, symmetrical, Denies cough, shortness of breath. GI: Abdomen is non-distended, Abd is soft and non tender X 4 quads. Reports nausea. : Reports burning with urination. EENT: No signs and/or symptoms were reported regarding the EENT system. Derm: Skin is intact, Skin is dry, Skin is normal, Skin temperature is warm. Musculoskeletal: Circulation, motion, and sensation intact. Range of motion: intact in all extremities. 17:29 Reassessment: Patient appears in no apparent distress at this time. No changes from jd3 previously documented assessment. Patient and/or family updated on plan of care and expected duration. Pain level reassessed. Patient is alert, oriented x 3, equal unlabored respirations, skin warm/dry/pink. 18:23 Reassessment: Patient appears in no apparent distress at this time. Patient and/or jd3 family updated on plan of care and expected duration. Pain level reassessed. Patient is alert, oriented x 3, equal unlabored respirations, skin warm/dry/pink. Patient states feeling better. 19:00 Reassessment: Patient and/or family updated on plan of care and expected duration. Pain ag7 level reassessed. Patient is alert, oriented x 3, equal unlabored respirations, skin warm/dry/pink. Patient denies pain at this time. Patient states symptoms have improved. Vital Signs: 14:31 BP 137 / 62; Pulse 125; Resp 16; Temp 99.3; Pulse Ox 96% on R/A; Weight 76.66 kg; iw Height 5 ft. 1 in. (154.94 cm); 17:29 Pulse 107; Resp 15 S; Pulse Ox 97% on R/A; jd3 18:23 Pulse 103; Resp 16 S; Pulse Ox 98% on R/A; jd3 19:10 BP 145 / 61; Pulse 103; Resp 18 S; Pulse Ox 100% on R/A; Pain 0/10; ag7 14:31 Body Mass Index 31.93 (76.66 kg, 154.94 cm) iw ED Course: 14:12 Patient arrived in ED. am2 14:13 Jc Blair, is Private Physician. am2 14:33 Triage completed. iw 14:33 Arm band placed on. iw 14:34 Page, Juan, PA is PHCP. cp 14:34 Torsten Nraayan MD is Attending Physician. cp 15:37 Trav Miranda RN is Primary Nurse. jd3 16:06 XRAY Chest (1 view) In Process Unspecified. EDMS 16:11 Inserted saline lock: 20 gauge in right antecubital area, using aseptic technique. mb7 Blood collected. 16:57 Influenza Screen (a \\T\\ B) Sent. mb7 16:57 COVID-19 SARS RT PCR (Document "Date of Onset" if Symptomatic) Sent. mb7 17:37 CT Stone Protocol In Process Unspecified. EDMS 18:23 Patient has correct armband on for positive identification. Placed in gown. Bed in low jd3 position. Call light in reach. Side rails up X 1. Adult w/ patient. Client placed on continuous cardiac and pulse oximetry monitoring. NIBP monitoring applied. title curator on. Pulse ox on. NIBP on. 20:29 No provider procedures requiring assistance completed. IV discontinued, intact, ag7 bleeding controlled, No redness/swelling at site. Pressure dressing applied. Administered Medications: 16:20 Drug: NS 0.9% (30 ml/kg) 30 ml/kg Route: IV; Rate: bolus; Site: right antecubital; jd3 16:20 Drug: Rocephin - (cefTRIAXone) 1 grams Route: IVPB; Infused Over: 30 mins; Site: right jd3 antecubital; 18:22 Drug: Potassium Effervescent Tablet 50 mEq Route: PO; jd3 18:23 Drug: Potassium Effervescent Tablet 25 mEq Route: PO; jd3 Medication: 18:23 VIS not applicable for this client. jd3 Outcome: 19:17 Discharge ordered by MD. cp 20:29 Discharged to home ambulatory. ag7 20:29 Condition: stable 20:29 Discharge instructions given to patient, Instructed on discharge instructions, follow up and referral plans. medication usage, Demonstrated understanding of instructions, follow-up care, medications, Prescriptions given X 3. 20:31 Patient left the ED. ag7 Signatures: Dispatcher [employer] EDMS Helena Pyle RN RN Juan Vásquez PA PA cp Elba Noriega am2 Trav Miranda RN RN jd3 Lianet Tejeda mb7 Cony Truong, RN RN ag7
--- NOTE | 2022-02-02 19:17 | EDPHYS ---
Physician Documentation [facility] Name: Tori Sylvester Age: 66 yrs Sex: Female : 1955 Arrival Date: 02/02/2022 Time: 14:12 Bed 14 Private MD: Johnnie [facility] ED Physician Torsten Narayan HPI: 02/02 15:15 This 66 yrs old Female presents to ER via Ambulatory with complaints of Fever, cp Cough, chills. 15:15 The patient reports fever, not measured (subjective). cp 15:15 Onset: The symptoms/episode began/occurred 2 day(s) ago. Associated signs and symptoms: cp Pertinent positives: cough, urinary frequency, Pertinent negatives: abdominal pain, diarrhea, headache, vomiting. Severity of symptoms: in the emergency department the symptoms are unchanged despite home interventions. Historical: - Allergies: 14:33 Levofloxacin; iw - PMHx: 14:33 Asthma; GERD; High Cholesterol; Hypertension; Uterine prolapse; iw - Immunization history:: Adult Immunizations up to date. - Social history:: Smoking status: unknown. ROS: 15:20 Constitutional: Positive for chills, Negative for body aches, fever, poor PO intake. cp 15:20 Eyes: Negative for injury, pain, redness, and discharge. cp 15:20 ENT: Negative for drainage from ear(s), ear pain, sore throat, difficulty swallowing, difficulty handling secretions. 15:20 Cardiovascular: Negative for chest pain. 15:20 Respiratory: Positive for cough, Negative for shortness of breath, wheezing. 15:20 Abdomen/GI: Negative for abdominal pain, vomiting, diarrhea, constipation. 15:20 : Positive for urinary frequency. 15:20 Neuro: Negative for altered mental status, headache, weakness. 15:20 All other systems are negative. Exam: 15:25 Constitutional: The patient appears in no acute distress, alert, awake, cp non-diaphoretic, non-toxic, well developed, well nourished. 15:25 Head/Face: Normocephalic, atraumatic. cp 15:25 Eyes: Periorbital structures: appear normal, Conjunctiva: normal, no exudate, no injection, Sclera: no appreciated abnormality, Lids and lashes: appear normal, bilaterally. 15:25 ENT: External ear(s): are unremarkable, Nose: is normal, Mouth: Lips: moist, Oral mucosa: pink and intact, moist, Posterior pharynx: Airway: no evidence of obstruction, patent, Tonsils: are normal in appearance, swelling, is not appreciated, erythema, is not appreciated, exudate, is not appreciated. 15:25 Neck: ROM/movement: is normal, is supple, without pain, no range of motions limitations, Meningeal signs: are not present. 15:25 Chest/axilla: Inspection: normal, Palpation: is normal, no crepitus, no tenderness. 15:25 Cardiovascular: Rate: tachycardic, Rhythm: regular, Edema: is not appreciated, JVD: is not appreciated. 15:25 Respiratory: the patient does not display signs of respiratory distress, Respirations: normal, no use of accessory muscles, Breath sounds: are clear throughout, no decreased breath sounds, no stridor, no wheezing. 15:25 Abdomen/GI: Inspection: abdomen appears normal, Bowel sounds: active, all quadrants, Palpation: abdomen is soft and non-tender, in all quadrants. 15:25 Back: CVA tenderness, is absent. 15:25 Neuro: Orientation: to person, place \\T\\ time. Mentation: is normal, Motor: moves all fours, strength is normal, Sensation: is normal. 16:38 ECG was reviewed by the Attending Physician. cp Vital Signs: 14:31 BP 137 / 62; Pulse 125; Resp 16; Temp 99.3; Pulse Ox 96% on R/A; Weight 76.66 kg; iw Height 5 ft. 1 in. (154.94 cm); 17:29 Pulse 107; Resp 15 S; Pulse Ox 97% on R/A; jd3 18:23 Pulse 103; Resp 16 S; Pulse Ox 98% on R/A; jd3 19:10 BP 145 / 61; Pulse 103; Resp 18 S; Pulse Ox 100% on R/A; Pain 0/10; ag7 14:31 Body Mass Index 31.93 (76.66 kg, 154.94 cm) iw MDM: 14:59 Patient medically screened. cp 16:00 Differential diagnosis: bronchitis, pneumonia UTI, sepsis, kidney stone. cp 19:15 Data reviewed: vital signs, nurses notes, lab test result(s), EKG, radiologic studies, cp CT scan, plain films. 19:15 Test interpretation: by ED physician or midlevel provider: ECG, plain radiologic cp studies. Counseling: I had a detailed discussion with the patient and/or guardian regarding: the historical points, exam findings, and any diagnostic results supporting the discharge/admit diagnosis, lab results, radiology results, to return to the emergency department if symptoms worsen or persist or if there are any questions or concerns that arise at home. Response to treatment: the patient's symptoms have markedly improved after treatment, and as a result, I will discharge patient. 02/02 15:13 Order name: Basic Metabolic Panel; Complete Time: 17:06 02/02 17:06 Interpretation: Normal except: K 3.1; GLUC 202; BUN 22; GFR 68. 02/02 15:13 Order name: CBC with Diff; Complete Time: 17:06 cp 02/02 17:07 Interpretation: Normal except: HCT 35.2; KAREEM% 80.9; LYM% 10.3; LYMA 0.5. 02/02 15:13 Order name: LFT's; Complete Time: 17:06 02/02 17:07 Interpretation: Normal except: ALK 119; GLOB 4.0; A/G 1.0. cp 02/02 15:13 Order name: Magnesium; Complete Time: 17:06 cp 02/02 15:13 Order name: NT PRO-BNP; Complete Time: 17:06 cp 02/02 15:13 Order name: PT-INR; Complete Time: 17:06 cp 02/02 17:45 Interpretation: PT 12.6; Reviewed. 02/02 15:13 Order name: Troponin HS; Complete Time: 17:06 cp 02/02 15:13 Order name: Procalcitonin; Complete Time: 17:32 cp 02/02 17:46 Interpretation: Reviewed. cp 02/02 15:13 Order name: Lactate; Complete Time: 17:32 cp 02/02 17:46 Interpretation: Reviewed. 02/02 15:13 Order name: Blood Culture Adult (2) cp 02/02 15:13 Order name: Urine Microscopic Only; Complete Time: 16:15 cp 02/02 17:07 Interpretation: Normal except: UWBC 10-20; UBACT LOADED. cp 02/02 15:15 Order name: COVID-19 SARS RT PCR (Document "Date of Onset" if Symptomatic); Complete cp Time: 17:46 02/02 15:15 Order name: Influenza Screen (a \\T\\ B); Complete Time: 17:32 cp 02/02 15:37 Order name: Urine Dipstick-Ancillary; Complete Time: 15:39 EDSC 02/02 17:45 Interpretation: Normal except: UBLD 1+; U NIT Positive; UESTR 2+. cp 02/02 15:13 Order name: XRAY Chest (1 view); Complete Time: 16:15 cp 02/02 17:08 Interpretation: Report reviewed. 02/02 15:13 Order name: EKG; Complete Time: 15:14 cp 02/02 15:13 Order name: Cardiac monitoring; Complete Time: 16:21 cp 02/02 15:13 Order name: EKG - Nurse/Tech; Complete Time: 16:21 cp 02/02 15:13 Order name: IV Saline Lock; Complete Time: 16:10 cp 02/02 15:13 Order name: Labs collected and sent; Complete Time: 16:10 cp 02/02 15:13 Order name: O2 Per Protocol; Complete Time: 15:38 cp 02/02 15:13 Order name: O2 Sat Monitoring; Complete Time: 15:38 cp 02/02 15:13 Order name: Urine Dipstick-Ancillary (obtain specimen); Complete Time: 15:43 cp 02/02 15:57 Order name: Urine Culture EDSC 02/02 17:08 Order name: CT Stone Protocol; Complete Time: 17:59 cp 02/02 17:59 Interpretation: Report reviewed. 02/02 17:46 Order name: PO challenge; Complete Time: 18:08 cp EC:38 Rate is 108 beats/min. Rhythm is regular. TN interval is normal. QRS interval is cp normal. QT interval is normal. T waves are Inverted in leads III, aVR. Interpreted by me. Reviewed by me. Administered Medications: 16:20 Drug: NS 0.9% (30 ml/kg) 30 ml/kg Route: IV; Rate: bolus; Site: right antecubital; jd3 16:20 Drug: Rocephin - (cefTRIAXone) 1 grams Route: IVPB; Infused Over: 30 mins; Site: right jd3 antecubital; 18:22 Drug: Potassium Effervescent Tablet 50 mEq Route: PO; jd3 18:23 Drug: Potassium Effervescent Tablet 25 mEq Route: PO; jd3 Disposition Summary: 02/02/22 19:17 Discharge Ordered Location: Home cp Problem: new cp Symptoms: have improved cp Condition: Stable cp Diagnosis - UTI/ Urinary tract infection, site not specified cp Followup: cp - With: Private Physician - When: 2 - 3 days - Reason: Recheck today's complaints Discharge Instructions: - Discharge Summary Sheet cp - Urinary Tract Infection, Adult cp Forms: - Medication Reconciliation Form cp - Thank You Letter cp - Antibiotic Education cp - Prescription Opioid Use cp Prescriptions: - Augmentin 875-125 mg Oral Tablet - take 1 tablet by ORAL route every 12 hours for 10 days; 20 tablet; Refills: 0, cp Product Selection Permitted - Pyridium 200 mg Oral Tablet - take 1 tablet by ORAL route every 8 hours for 3 days; 9 tablet; Refills: 0, cp Product Selection Permitted - Zofran 4 mg Oral Tablet - take 1 tablet by ORAL route every 12 hours As needed; 20 tablet; Refills: 0, cp Product Selection Permitted Signatures: Dispatcher [employer] Helena Antonio, RN RN iw Mynor Carlson, STITCH BONDING MACHINE DRAWER IN-C STITCH BONDING MACHINE DRAWER IN-Cla1 Juan Vásquez PA PA Trav Worthington RN RN jd3
[2022-02-02 22:58] VITALS: TEMP 99.3
[2022-02-02 23:08] VITALS: BP 145/61; O2SAT 100
--- NOTE | 2022-02-03 14:47 | EKG ---
Test Date: 2022-02-02 Test Time: 16:31:36 Snack Bar Attendant: PENNIE MEASUREMENT RESULTS: Intervals: Rate: 108 RI: 148 QRSD: 80 QT: 342 QTc: 458 [place]: P: 64 RI: 148 QRS: 31 T: 2 INTERPRETIVE STATEMENTS: Sinus tachycardia Cannot rule out Anterior infarct, age undetermined T wave abnormality, consider inferior ischemia Abnormal ECG Compared to ECG 09/23/2020 12:23:42 Myocardial infarct finding now present T-wave abnormality now present ST (T wave) deviation no longer present Possible ischemia still present Electronically Signed On 02-03-22 14:46:13 CDT by Steve Mcdermott
== END 2022-02-02 20:31 | disposition home or self-care (01) ==
LOC: ER 14:02
DX: N39.0 Urinary tract infection, site not specified (principal); R05.9 Cough, unspecified; I10 Essential (primary) hypertension; Z20.822 Contact with and (suspected) exposure to COVID-19; Z88.1 Allergy status to other antibiotic agents
CPT/HCPCS: 93005; 87040 ×2; 87088; 85025; 87086; 80048; 36415; 83735; 85610; 80076; 83605; 87077 ×2; 87186 ×2; 84484; 84145; 83880; 87804 ×2; 76377; 74176; 71045; 96375; 96374; 99284; U0003; J7030; 81003; 81015

== ENCOUNTER 2022-08-12 14:46 | Emergency (ER) | payer MEDICARE ==
--- OUTSIDE RECORDS SUMMARY | 2022-08-12 14:51 | XMS REPORT | Continuity of Care Document ---
:1955 Author Organization [facility] t Address [address] [place] [address] [address] [place] [address] Care Team Providers Name Role Phone PCP, PATIENT DOES NOT HAVE A Primary Care Physician Unavaila Jc Macias Attending Clinician Unavailable FABIAN NAYLOR III Attending Clinician Unavailable King DIONICIO MD, James C Attending Clinician Unknown, Attending Attending Clinician Unavailable Doctor Unassigned, Jeddo Attending Clinician Unavailable Lorena Attending Clinician Unavailable BWchance Attending Clinician Unavailable Laura Gonzáles Attending Clinician DEEDEE ROCKWELL Attending Clinician Unavailable Lab, Adc Fam Pob I Attending Clinician Unavailable Kimmy Montiel Attending Clinician KIMMY ALVAREZ Attending Clinician Unavailable Lorena Admitting Clinician Unavailable BWchance Admitting Clinician Unavailable Payers Payer Name Policy Type Policy Number Effective Date Expiration Date S jaimee [employer] [facility] [id number] 2022 MEDICARE ADVANTAGE 00:00:00 PLAN [employer] [facility] [id number] 2021 (MEDICARE 00:00:00 REPLACEMENT HMO) [facility] [id number] 2019 00:00:00 BCBS [facility] [id number] 2012 OF STATE 00:00:00 Problems Condition Condition Condition Status Onset Resolution Last Treating Co mments Source Name Details Category Date Date Treatment Clinician Date [id number] Body mass Problem Com mon index Spirit [BMI] - [facility] 32.0-32.9, [facility] [id number] Other Problem Common obesity Spirit due to - [facility] excess [facility] [id number] Moderate Problem Comm on persistent Spirit asthma, - [facility] unspecifie [facility] [id number] Non-season Problem Com mon al [facility] allergic - [facility] [place] [id number] GERD Problem Common without Spirit esophagiti - [facility] s [facility] [id number] Essential Problem Comm on hypertensi Spirit on - [facility] [id number] Mixed Problem Common hyperlipid Spirit emia - [facility] [id number] Type 2 Problem Common diabetes Spirit mellitus - [facility] with [facility] long-term current use of insulin [id number] Nonalcohol Problem Co mmon ic fatty Spirit liver - [facility] disease [facility] Exacerbati Asthma Problem Commo n on of exacerbati Spirit asthma on - [facility] [id number] Type 2 [place] [id number] diabetes Spirit mellitus - [facility] with other Psychiatric kidney Medical complicati Center on 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 - [facility] [id number] Female Problem Common bladder Spirit prolapse - [facility] No known No known Disease Unive rs active active ity of problems problems [facility] Allergies, Adverse Reactions, Alerts Allergy Allergy Status Severity Reaction(s) Onset Inactive Treating Comm ents Source Name Type Date Date Clinician LEVOFLOX DRUG Active Anxiety 2021-09 Univers ACIN INGREDI 10-10 ity of 00:00: [place] 00 [facility] Branch Levoflox Propensi Active Anxiety 2021-09 Unive rs acin ty to 10-10 ity of adverse 00:00: [place] reaction 00 Medical s Branch NO KNOWN Drug Active Univers ALLERGIE Class ity of S [facility] Social History Social Habit Start Date Stop Date Quantity Comments Source History of Tobacco Common [facility] - [facility] Use [facility] Sex Assigned At Common Sp jacinta - [facility] Exposure to 2022-07-31 2022-08-10 Not sure [facility] SARS-CoV-2 (event) 00:00:00 13:43:00 Medica l Branch Smoking Status Start Date Stop Date Source Tobacco smoking consumption [facility] [place] [facility] unknown Branch Never Smoker [facility] - [facility] Medications Ordered Filled Start Stop Current Ordering Indication Dosage Frequency Signature Comments Components Source Medication Medication Date Date Medication? Clinician (SIG) Name Name benzonatate 2021-09 Yes [id number] 100mg Take 1 Univers 100 mg 1-19 capsule by ity of capsule 00:00: mouth [place] 00 every 8 Medical (eight) Branch hours as needed for Cough. Methylpredn 2021-09- Yes [id number] 4mg Take 1 Univers isolone 4 -19 11-25 tablet by ity of mg tablet 00:00: 05:59 mouth [place] 00 :00 every 12 Medical (twelve) Branch hours for 5 days. Ferrous Ferrous No 1{table Ferrous Sulfate 325 Sulfate 325 6-01 t} Sulfate (65 Fe) MG (65 Fe) MG 00:00: 325 (65 00 Fe) MG Ferrous Ferrous 0 No 1{table Ferrous Sulfate 325 Sulfate 325 6-01 t} Sulfate (65 Fe) MG (65 Fe) MG 00:00: 325 (65 00 Fe) MG Ferrous Ferrous No 1{table Ferrous Sulfate 325 Sulfate 325 6-01 t} Sulfate (65 Fe) MG (65 Fe) MG 00:00: 325 (65 00 Fe) MG Ferrous Ferrous 0 No 1{table Ferrous Sulfate 325 Sulfate 325 6-01 t} Sulfate (65 Fe) MG (65 Fe) MG 00:00: 325 (65 00 Fe) MG Ferrous Ferrous 0 No 1{table Ferrous Sulfate 325 Sulfate 325 6-01 t} Sulfate (65 Fe) MG (65 Fe) MG 00:00: 325 (65 00 Fe) MG Ferrous Ferrous 0 No 1{table Ferrous Sulfate 325 Sulfate 325 6-01 t} Sulfate (65 Fe) MG (65 Fe) MG 00:00: 325 (65 00 Fe) MG Ferrous Ferrous 0 No 1{table Ferrous Sulfate 325 Sulfate 325 6-01 t} Sulfate (65 Fe) MG (65 Fe) MG 00:00: 325 (65 00 Fe) MG Ferrous Ferrous 0 No 1{table Ferrous Sulfate 325 Sulfate 325 6-01 t} Sulfate (65 Fe) MG (65 Fe) MG 00:00: 325 (65 00 Fe) MG Blood Blood 2022-0 No BID Blood Glucose Glucose 2-03 Glucose Test - Test - 00:00: Test - 00 Blood Blood 2022-0 No Blood Glucose Glucose 2-03 Glucose System Lucius System Lucius 00:00: System Lucius - - 00 - Lancets - Lancets - 2022-0 No BID Lancets - 2-03 00:00: 00 Blood Blood 2022-0 No BID Blood Glucose Glucose 2-03 Glucose Test - Test - 00:00: Test - 00 Blood Blood 2-0 No Blood Glucose Glucose 2-03 Glucose System Lucius System Lucius 00:00: System Lucius - - 00 - Lancets - Lancets - 2022-0 No BID Lancets - 2-03 00:00: 00 Blood Blood 2-0 No Blood Glucose Glucose 2-03 Glucose System Lucius System Lucius 00:00: System Lucius - - 00 - Blood Blood 2-0 No BID Blood Glucose Glucose 2-03 Glucose Test - Test - 00:00: Test - 00 Blood Blood 2-0 No BID Blood Glucose Glucose 2-03 Glucose Test - Test - 00:00: Test - 00 Blood Blood 2-0 No Blood Glucose Glucose 2-03 Glucose System Lucius System Lucius 00:00: System Lucius - - 00 - Lancets - Lancets - 2022-0 No BID Lancets - 2-03 00:00: 00 Blood Blood 2-0 No BID Blood Glucose Glucose 2-03 Glucose Test - Test - 00:00: Test - 00 Blood Blood 2-0 No Blood Glucose Glucose 2-03 Glucose System Lucius System Lucius 00:00: System Lucius - - 00 - Lancets - Lancets - 2022-0 No BID Lancets - 2-03 00:00: 00 Blood Blood 2-0 No BID Blood Glucose Glucose 2-03 Glucose Test - Test - 00:00: Test - 00 Lancets - Lancets - 2022-0 No BID Lancets - 2-03 00:00: 00 Blood Blood 2-0 No Blood Glucose Glucose 2-03 Glucose System Lucius System Lucius 00:00: System Lucius - - 00 - Blood Blood 2-0 No BID Blood Glucose Glucose 2-03 Glucose Test - Test - 00:00: Test - 00 Blood Blood 2022-0 No Blood Glucose Glucose 2-03 Glucose System Lucius System Lucius 00:00: System Lucius - - 00 - Lancets - Lancets - 2022-0 No BID Lancets - 2-03 00:00: 00 Lancets - Lancets - 2022-0 No BID Lancets - 2-03 00:00: 00 Blood Blood 2022-0 No BID Blood Glucose Glucose 2-03 Glucose Test - Test - 00:00: Test - 00 Blood Blood 2022-0 No Blood Glucose Glucose 2-03 Glucose System Lucius System Lucius 00:00: System Lucius - - 00 - Lancets - Lancets - 2022-0 No BID Lancets - 2-03 00:00: 00 Blood Blood 2022-0 No BID Blood Glucose Glucose 2-03 Glucose Test - Test - 00:00: Test - 00 Blood Blood 2022-0 No Blood Glucose Glucose 2-03 Glucose System Lucius System Lucius 00:00: System Lucius - - 00 - Blood Blood 2022-0 No BID Blood Glucose Glucose 2-03 Glucose Test - Test - 00:00: Test - 00 Lancets - Lancets - 2022-0 No BID Lancets - 2-03 00:00: 00 Blood Blood 2022-0 No Blood Glucose Glucose 2-03 Glucose System Lucius System Lucius 00:00: System Lucius - - 00 - Lancets - Lancets - 2022-0 No BID Lancets - 2-03 00:00: 00 Blood Blood 2022-0 No BID Blood Glucose Glucose 2-03 Glucose Test - Test - 00:00: Test - 00 Blood Blood 2022-0 No Blood Glucose Glucose 2-03 Glucose System Lucius System Lucius 00:00: System Lucius - - 00 - Lancets - Lancets - 2022-0 No BID Lancets - 2-03 00:00: 00 Pantoprazol Pantoprazol No Pantoprazo e Sodium 40 e Sodium 40 le Sodium MG MG 40 MG ProAir HFA ProAir HFA No 2{puffs ProAir HFA 108 (90 108 (90 _as_nee 108 (90 Base) Base) ded} Base) MCG/ACT MCG/ACT MCG/ACT dilTIAZem dilTIAZem No dilTIAZem HCl ER HCl ER HCl ER Coated Coated Coated Beads 240 Beads 240 Beads 240 MG MG MG Urea 41 % Urea 41 % No 1{appli QD Urea 41 % cation_ as_need ed} dilTIAZem dilTIAZem No dilTIAZem HCl ER HCl ER HCl ER Coated Coated Coated Beads 240 Beads 240 Beads 240 MG MG MG Xyzal Xyzal No Xyzal Gemfibrozil Gemfibrozil No Gemfibrozi 600 MG 600 MG l 600 MG metFORMIN metFORMIN No metFORMIN HCl 500 MG HCl 500 MG HCl 500 MG Losartan Losartan No Losartan Potassium-H Potassium-H Potassium- CTZ CTZ HCTZ 100-12.5 MG 100-12.5 MG 100-12.5 MG Breo Breo No 1{puff} QD Breo Ellipta Ellipta Ellipta 200-25 200-25 200-25 MCG/INH MCG/INH MCG/INH Claritin 10 Claritin 10 No 1{table QD Claritin MG MG t} 10 MG Gemfibrozil Gemfibrozil No Gemfibrozi 600 MG 600 MG l 600 MG Pantoprazol Pantoprazol No Pantoprazo e Sodium 40 e Sodium 40 le Sodium MG MG 40 MG Aspirin 81 Aspirin 81 No 1{table QD Aspirin 81 81 MG 81 MG t} 81 MG metFORMIN metFORMIN No 1{table BID metFORMIN HCl 500 MG HCl 500 MG t_with_ HCl 500 MG a_meal} Losartan Losartan No 1{table QD Losartan Potassium-H Potassium-H t} Potassium- CTZ CTZ HCTZ 100-12.5 MG 100-12.5 MG 100-12.5 MG Pantoprazol Pantoprazol No Pantoprazo e Sodium 40 e Sodium 40 le Sodium MG MG 40 MG ProAir HFA ProAir HFA No 2{puffs ProAir HFA 108 (90 108 (90 _as_nee 108 (90 Base) Base) ded} Base) MCG/ACT MCG/ACT MCG/ACT dilTIAZem dilTIAZem No dilTIAZem HCl ER HCl ER HCl ER Coated Coated Coated Beads 240 Beads 240 Beads 240 MG MG MG Urea 41 % Urea 41 % No 1{appli QD Urea 41 % cation_ as_need ed} dilTIAZem dilTIAZem No dilTIAZem HCl ER HCl ER HCl ER Coated Coated Coated Beads 240 Beads 240 Beads 240 MG MG MG Xyzal Xyzal No Xyzal Gemfibrozil Gemfibrozil No Gemfibrozi 600 MG 600 MG l 600 MG metFORMIN metFORMIN No metFORMIN HCl 500 MG HCl 500 MG HCl 500 MG Losartan Losartan No Losartan Potassium-H Potassium-H Potassium- CTZ CTZ HCTZ 100-12.5 MG 100-12.5 MG 100-12.5 MG Breo Breo No 1{puff} QD Breo Ellipta Ellipta Ellipta 200-25 200-25 200-25 MCG/INH MCG/INH MCG/INH Claritin 10 Claritin 10 No 1{table QD Claritin MG MG t} 10 MG Gemfibrozil Gemfibrozil No Gemfibrozi 600 MG 600 MG l 600 MG Pantoprazol Pantoprazol No Pantoprazo e Sodium 40 e Sodium 40 le Sodium MG MG 40 MG Breo Breo No 1{puff} QD Breo Ellipta Ellipta Ellipta 200-25 200-25 200-25 MCG/INH MCG/INH MCG/INH Gemfibrozil Gemfibrozil No Gemfibrozi 600 MG 600 MG l 600 MG Aspirin 81 Aspirin 81 No 1{table QD Aspirin 81 81 MG 81 MG t} 81 MG Pantoprazol Pantoprazol No Pantoprazo e Sodium 40 e Sodium 40 le Sodium MG MG 40 MG Claritin 10 Claritin 10 No 1{table QD Claritin MG MG t} 10 MG dilTIAZem dilTIAZem No dilTIAZem HCl ER HCl ER HCl ER Coated Coated Coated Beads 240 Beads 240 Beads 240 MG MG MG ProAir HFA ProAir HFA No 2{puffs ProAir HFA 108 (90 108 (90 _as_nee 108 (90 Base) Base) ded} Base) MCG/ACT MCG/ACT MCG/ACT Urea 41 % Urea 41 % No 1{appli QD Urea 41 % cation_ as_need ed} Losartan Losartan No 1{table QD Losartan Potassium-H Potassium-H t} Potassium- CTZ CTZ HCTZ 100-12.5 MG 100-12.5 MG 100-12.5 MG Xyzal Xyzal No Xyzal metFORMIN metFORMIN No 1{table BID metFORMIN HCl 500 MG HCl 500 MG t_with_ HCl 500 MG a_meal} Pantoprazol Pantoprazol No Pantoprazo e Sodium 40 e Sodium 40 le Sodium MG MG 40 MG Losartan Losartan No Losartan Potassium-H Potassium-H Potassium- CTZ CTZ HCTZ 100-12.5 MG 100-12.5 MG 100-12.5 MG metFORMIN metFORMIN No metFORMIN HCl 500 MG HCl 500 MG HCl 500 MG dilTIAZem dilTIAZem No dilTIAZem HCl ER HCl ER HCl ER Coated Coated Coated Beads 240 Beads 240 Beads 240 MG MG MG Gemfibrozil Gemfibrozil No Gemfibrozi 600 MG 600 MG l 600 MG Xyzal Xyzal No Xyzal Gemfibrozil Gemfibrozil No Gemfibrozi 600 MG 600 MG l 600 MG Breo Breo No 1{puff} QD Breo Ellipta Ellipta Ellipta 200-25 200-25 200-25 MCG/INH MCG/INH MCG/INH ProAir HFA ProAir HFA No 2{puffs ProAir HFA 108 (90 108 (90 _as_nee 108 (90 Base) Base) ded} Base) MCG/ACT MCG/ACT MCG/ACT metFORMIN metFORMIN No 1{table BID metFORMIN HCl 500 MG HCl 500 MG t_with_ HCl 500 MG a_meal} dilTIAZem dilTIAZem No dilTIAZem HCl ER HCl ER HCl ER Coated Coated Coated Beads 240 Beads 240 Beads 240 MG MG MG Losartan Losartan No 1{table QD Losartan Potassium-H Potassium-H t} Potassium- CTZ CTZ HCTZ 100-12.5 MG 100-12.5 MG 100-12.5 MG Gemfibrozil Gemfibrozil No Gemfibrozi 600 MG 600 MG l 600 MG Losartan Losartan No Losartan Potassium-H Potassium-H Potassium- CTZ CTZ HCTZ 100-12.5 MG 100-12.5 MG 100-12.5 MG Aspirin 81 Aspirin 81 No 1{table QD Aspirin 81 81 MG 81 MG t} 81 MG dilTIAZem dilTIAZem No dilTIAZem HCl ER HCl ER HCl ER Coated Coated Coated Beads 240 Beads 240 Beads 240 MG MG MG metFORMIN metFORMIN No metFORMIN HCl 500 MG HCl 500 MG HCl 500 MG Pantoprazol Pantoprazol No Pantoprazo e Sodium 40 e Sodium 40 le Sodium MG MG 40 MG Claritin 10 Claritin 10 No 1{table QD Claritin MG MG t} 10 MG Pantoprazol Pantoprazol No Pantoprazo e Sodium 40 e Sodium 40 le Sodium MG MG 40 MG Xyzal Xyzal No Xyzal Gemfibrozil Gemfibrozil No Gemfibrozi 600 MG 600 MG l 600 MG Breo Breo No 1{puff} QD Breo Ellipta Ellipta Ellipta 200-25 200-25 200-25 MCG/INH MCG/INH MCG/INH ProAir HFA ProAir HFA No 2{puffs ProAir HFA 108 (90 108 (90 _as_nee 108 (90 Base) Base) ded} Base) MCG/ACT MCG/ACT MCG/ACT metFORMIN metFORMIN No 1{table BID metFORMIN HCl 500 MG HCl 500 MG t_with_ HCl 500 MG a_meal} dilTIAZem dilTIAZem No dilTIAZem HCl ER HCl ER HCl ER Coated Coated Coated Beads 240 Beads 240 Beads 240 MG MG MG Losartan Losartan No 1{table QD Losartan Potassium-H Potassium-H t} Potassium- CTZ CTZ HCTZ 100-12.5 MG 100-12.5 MG 100-12.5 MG Gemfibrozil Gemfibrozil No Gemfibrozi 600 MG 600 MG l 600 MG Losartan Losartan No Losartan Potassium-H Potassium-H Potassium- CTZ CTZ HCTZ 100-12.5 MG 100-12.5 MG 100-12.5 MG Aspirin 81 Aspirin 81 No 1{table QD Aspirin 81 81 MG 81 MG t} 81 MG dilTIAZem dilTIAZem No dilTIAZem HCl ER HCl ER HCl ER Coated Coated Coated Beads 240 Beads 240 Beads 240 MG MG MG metFORMIN metFORMIN No metFORMIN HCl 500 MG HCl 500 MG HCl 500 MG Pantoprazol Pantoprazol No Pantoprazo e Sodium 40 e Sodium 40 le Sodium MG MG 40 MG Claritin 10 Claritin 10 No 1{table QD Claritin MG MG t} 10 MG Pantoprazol Pantoprazol No Pantoprazo e Sodium 40 e Sodium 40 le Sodium MG MG 40 MG Breo Breo No 1{puff} QD Breo Ellipta Ellipta Ellipta 200-25 200-25 200-25 MCG/INH MCG/INH MCG/INH ProAir HFA ProAir HFA No 2{puffs ProAir HFA 108 (90 108 (90 _as_nee 108 (90 Base) Base) ded} Base) MCG/ACT MCG/ACT MCG/ACT Gemfibrozil Gemfibrozil No Gemfibrozi 600 MG 600 MG l 600 MG Xyzal Xyzal No Xyzal dilTIAZem dilTIAZem No QD dilTIAZem HCl ER HCl ER HCl ER Coated Coated Coated Beads 240 Beads 240 Beads 240 MG MG MG metFORMIN metFORMIN No 1{table BID metFORMIN HCl 500 MG HCl 500 MG t_with_ HCl 500 MG a_meal} metFORMIN metFORMIN No metFORMIN HCl 500 MG HCl 500 MG HCl 500 MG Gemfibrozil Gemfibrozil No Gemfibrozi 600 MG 600 MG l 600 MG Losartan Losartan No Losartan Potassium-H Potassium-H Potassium- CTZ CTZ HCTZ 100-12.5 MG 100-12.5 MG 100-12.5 MG Pantoprazol Pantoprazol No Pantoprazo e Sodium 40 e Sodium 40 le Sodium MG MG 40 MG dilTIAZem dilTIAZem No dilTIAZem HCl ER HCl ER HCl ER Coated Coated Coated Beads 240 Beads 240 Beads 240 MG MG MG Aspirin 81 Aspirin 81 No 1{table QD Aspirin 81 81 MG 81 MG t} 81 MG Pantoprazol Pantoprazol No QD Pantoprazo e Sodium 40 e Sodium 40 le Sodium MG MG 40 MG Claritin 10 Claritin 10 No 1{table QD Claritin MG MG t} 10 MG Xyzal Xyzal No Xyzal dilTIAZem dilTIAZem No dilTIAZem HCl ER HCl ER HCl ER Coated Coated Coated Beads 240 Beads 240 Beads 240 MG MG MG Breo Breo No 1{puff} QD Breo Ellipta Ellipta Ellipta 200-25 200-25 200-25 MCG/INH MCG/INH MCG/INH ProAir HFA ProAir HFA No 2{puffs ProAir HFA 108 (90 108 (90 _as_nee 108 (90 Base) Base) ded} Base) MCG/ACT MCG/ACT MCG/ACT metFORMIN metFORMIN No 1{table BID metFORMIN HCl 500 MG HCl 500 MG t_with_ HCl 500 MG a_meal} metFORMIN metFORMIN No metFORMIN HCl ER 500 HCl ER 500 HCl ER 500 MG MG MG Gemfibrozil Gemfibrozil No Gemfibrozi 600 MG 600 MG l 600 MG Gemfibrozil Gemfibrozil No Gemfibrozi 600 MG 600 MG l 600 MG dilTIAZem dilTIAZem No QD dilTIAZem HCl ER HCl ER HCl ER Coated Coated Coated Beads 240 Beads 240 Beads 240 MG MG MG Aspirin 81 Aspirin 81 No 1{table QD Aspirin 81 81 MG 81 MG t} 81 MG Claritin 10 Claritin 10 No 1{table QD Claritin MG MG t} 10 MG metFORMIN metFORMIN No metFORMIN HCl 500 MG HCl 500 MG HCl 500 MG Pantoprazol Pantoprazol No QD Pantoprazo e Sodium 40 e Sodium 40 le Sodium MG MG 40 MG Losartan Losartan No Losartan Potassium-H Potassium-H Potassium- CTZ CTZ HCTZ 100-12.5 MG 100-12.5 MG 100-12.5 MG Pantoprazol Pantoprazol No Pantoprazo e Sodium 40 e Sodium 40 le Sodium MG MG 40 MG Claritin 10 Claritin 10 No 1{table QD Claritin MG MG t} 10 MG Gemfibrozil Gemfibrozil No Gemfibrozi 600 MG 600 MG l 600 MG Breo Breo No 1{puff} QD Breo Ellipta Ellipta Ellipta 200-25 200-25 200-25 MCG/INH MCG/INH MCG/INH metFORMIN metFORMIN No BID metFORMIN HCl ER 500 HCl ER 500 HCl ER 500 MG MG MG metFORMIN metFORMIN No metFORMIN HCl 500 MG HCl 500 MG HCl 500 MG dilTIAZem dilTIAZem No dilTIAZem HCl ER HCl ER HCl ER Coated Coated Coated Beads 240 Beads 240 Beads 240 MG MG MG ProAir HFA ProAir HFA No 2{puffs ProAir HFA 108 (90 108 (90 _as_nee 108 (90 Base) Base) ded} Base) MCG/ACT MCG/ACT MCG/ACT Pantoprazol Pantoprazol No Pantoprazo e Sodium 40 e Sodium 40 le Sodium MG MG 40 MG dilTIAZem dilTIAZem No dilTIAZem HCl ER HCl ER HCl ER Coated Coated Coated Beads 240 Beads 240 Beads 240 MG MG MG Xyzal Xyzal No Xyzal Losartan Losartan No Losartan Potassium-H Potassium-H Potassium- CTZ CTZ HCTZ 100-12.5 MG 100-12.5 MG 100-12.5 MG metFORMIN metFORMIN No metFORMIN HCl ER 500 HCl ER 500 HCl ER 500 MG MG MG Aspirin 81 Aspirin 81 No 1{table QD Aspirin 81 81 MG 81 MG t} 81 MG Gemfibrozil Gemfibrozil No Gemfibrozi 600 MG 600 MG l 600 MG Pantoprazol Pantoprazol No Pantoprazo e Sodium 40 e Sodium 40 le Sodium MG MG 40 MG metFORMIN metFORMIN No 1{table BID metFORMIN HCl 500 MG HCl 500 MG t_with_ HCl 500 MG a_meal} Losartan Losartan No 1{table QD Losartan Potassium-H Potassium-H t} Potassium- CTZ CTZ HCTZ 100-12.5 MG 100-12.5 MG 100-12.5 MG Claritin 10 Claritin 10 No 1{table QD Claritin MG MG t} 10 MG Gemfibrozil Gemfibrozil No Gemfibrozi 600 MG 600 MG l 600 MG Breo Breo No 1{puff} QD Breo Ellipta Ellipta Ellipta 200-25 200-25 200-25 MCG/INH MCG/INH MCG/INH metFORMIN metFORMIN No BID metFORMIN HCl ER 500 HCl ER 500 HCl ER 500 MG MG MG metFORMIN metFORMIN No metFORMIN HCl 500 MG HCl 500 MG HCl 500 MG dilTIAZem dilTIAZem No dilTIAZem HCl ER HCl ER HCl ER Coated Coated Coated Beads 240 Beads 240 Beads 240 MG MG MG ProAir HFA ProAir HFA No 2{puffs ProAir HFA 108 (90 108 (90 _as_nee 108 (90 Base) Base) ded} Base) MCG/ACT MCG/ACT MCG/ACT Pantoprazol Pantoprazol No Pantoprazo e Sodium 40 e Sodium 40 le Sodium MG MG 40 MG dilTIAZem dilTIAZem No dilTIAZem HCl ER HCl ER HCl ER Coated Coated Coated Beads 240 Beads 240 Beads 240 MG MG MG Xyzal Xyzal No Xyzal Losartan Losartan No Losartan Potassium-H Potassium-H Potassium- CTZ CTZ HCTZ 100-12.5 MG 100-12.5 MG 100-12.5 MG metFORMIN metFORMIN No metFORMIN HCl ER 500 HCl ER 500 HCl ER 500 MG MG MG Aspirin 81 Aspirin 81 No 1{table QD Aspirin 81 81 MG 81 MG t} 81 MG Breo Breo No 1{puff} QD Breo Ellipta Ellipta Ellipta 200-25 200-25 200-25 MCG/INH MCG/INH MCG/INH Gemfibrozil Gemfibrozil No Gemfibrozi 600 MG 600 MG l 600 MG Pantoprazol Pantoprazol No Pantoprazo e Sodium 40 e Sodium 40 le Sodium MG MG 40 MG metFORMIN metFORMIN No 1{table BID metFORMIN HCl 500 MG HCl 500 MG t_with_ HCl 500 MG a_meal} Losartan Losartan No 1{table QD Losartan Potassium-H Potassium-H t} Potassium- CTZ CTZ HCTZ 100-12.5 MG 100-12.5 MG 100-12.5 MG ProAir HFA ProAir HFA No 2{puffs ProAir HFA 108 (90 108 (90 _as_nee 108 (90 Base) Base) ded} Base) MCG/ACT MCG/ACT MCG/ACT Gemfibrozil Gemfibrozil No Gemfibrozi 600 MG 600 MG l 600 MG Xyzal Xyzal No Xyzal dilTIAZem dilTIAZem No QD dilTIAZem HCl ER HCl ER HCl ER Coated Coated Coated Beads 240 Beads 240 Beads 240 MG MG MG metFORMIN metFORMIN No 1{table BID metFORMIN HCl 500 MG HCl 500 MG t_with_ HCl 500 MG a_meal} metFORMIN metFORMIN No metFORMIN HCl 500 MG HCl 500 MG HCl 500 MG Gemfibrozil Gemfibrozil No Gemfibrozi 600 MG 600 MG l 600 MG Losartan Losartan No Losartan Potassium-H Potassium-H Potassium- CTZ CTZ HCTZ 100-12.5 MG 100-12.5 MG 100-12.5 MG Pantoprazol Pantoprazol No Pantoprazo e Sodium 40 e Sodium 40 le Sodium MG MG 40 MG dilTIAZem dilTIAZem No dilTIAZem HCl ER HCl ER HCl ER Coated Coated Coated Beads 240 Beads 240 Beads 240 MG MG MG Aspirin 81 Aspirin 81 No 1{table QD Aspirin 81 81 MG 81 MG t} 81 MG Pantoprazol Pantoprazol No QD Pantoprazo e Sodium 40 e Sodium 40 le Sodium MG MG 40 MG Claritin 10 Claritin 10 No 1{table QD Claritin MG MG t} 10 MG Aspirin 81 Aspirin 81 No 1{table QD Aspirin 81 81 MG 81 MG t} 81 MG metFORMIN metFORMIN No 1{table BID metFORMIN HCl 500 MG HCl 500 MG t_with_ HCl 500 MG a_meal} Losartan Losartan No 1{table QD Losartan Potassium-H Potassium-H t} Potassium- CTZ CTZ HCTZ 100-12.5 MG 100-12.5 MG 100-12.5 MG Pantoprazol Pantoprazol No Pantoprazo e Sodium 40 e Sodium 40 le Sodium MG MG 40 MG ProAir HFA ProAir HFA No 2{puffs ProAir HFA 108 (90 108 (90 _as_nee 108 (90 Base) Base) ded} Base) MCG/ACT MCG/ACT MCG/ACT dilTIAZem dilTIAZem No dilTIAZem HCl ER HCl ER HCl ER Coated Coated Coated Beads 240 Beads 240 Beads 240 MG MG MG Urea 41 % Urea 41 % No 1{appli QD Urea 41 % cation_ as_need ed} dilTIAZem dilTIAZem No dilTIAZem HCl ER HCl ER HCl ER Coated Coated Coated Beads 240 Beads 240 Beads 240 MG MG MG Xyzal Xyzal No Xyzal Gemfibrozil Gemfibrozil No Gemfibrozi 600 MG 600 MG l 600 MG metFORMIN metFORMIN No metFORMIN HCl 500 MG HCl 500 MG HCl 500 MG Losartan Losartan No Losartan Potassium-H Potassium-H Potassium- CTZ CTZ HCTZ 100-12.5 MG 100-12.5 MG 100-12.5 MG Breo Breo No 1{puff} QD Breo Ellipta Ellipta Ellipta 200-25 200-25 200-25 MCG/INH MCG/INH MCG/INH Claritin 10 Claritin 10 No 1{table QD Claritin MG MG t} 10 MG Gemfibrozil Gemfibrozil No Gemfibrozi 600 MG 600 MG l 600 MG Pantoprazol Pantoprazol No Pantoprazo e Sodium 40 e Sodium 40 le Sodium MG MG 40 MG Aspirin 81 Aspirin 81 No 1{table QD Aspirin 81 81 MG 81 MG t} 81 MG metFORMIN metFORMIN No 1{table BID metFORMIN HCl 500 MG HCl 500 MG t_with_ HCl 500 MG a_meal} Losartan Losartan No 1{table QD Losartan Potassium-H Potassium-H t} Potassium- CTZ CTZ HCTZ 100-12.5 MG 100-12.5 MG 100-12.5 MG Immunizations Ordered Filled Immunization Date Status Comments Sourc e Immunization Name Name FluAD FluAD 2021-07-11 Completed [facility] 14:[facility]:00 [facility] FluAD FluAD 2021-07-11 Completed [facility] - 14:13:00 [facility] FluAD FluAD 2021-07-11 Completed [facility] - 14:13:00 [facility] FluAD FluAD 2021-07-11 Completed [facility] - 14:13:00 [facility] FluAD FluAD 2021-07-11 Completed [facility] - 14:13:00 [facility] FluAD FluAD 2021-07-11 Completed [facility] - 14:13:00 [facility] FluAD FluAD 2021-07-11 Completed [facility] - 14:13:00 [facility] FluAD FluAD 2021-07-11 Completed [facility] 14:13:00 [facility] FluAD FluAD 2021-07-11 Completed [facility] 14:13:00 [facility] FluAD FluAD 2021-07-11 Completed [facility] - 14:13:00 [facility] FluAD FluAD 2021-07-11 Completed [facility] - 14:13:00 [facility] SARS-COV-2 COVID-19 2021-01-02 Completed [facility] VACCINE 00:00:00 [facility]ly [facility] SARS-COV-2 COVID-19 2021-01-02 Completed Unive rsity of PFIZER VACCINE 00:00:00 [facility]ly [facility] SARS-COV-2 COVID-19 2020-12-12 Completed Unive rsity of PFIZER VACCINE 00:00:00 [facility]ly [facility] SARS-COV-2 COVID-19 2020-12-12 Completed Unive rsity of PFIZER VACCINE 00:00:00 [facility]ly [facility] Vital Signs Vital Name Observation Time Observation Value Comments Source Systolic blood 2022-08-10 19:46:00 165 mm[Hg] Univer sity of pressure [facility] Diastolic blood 2022-08-10 19:46:00 73 mm[Hg] Unive rsity of pressure [facility] Heart rate 2022-08-10 19:45:00 101 /min [facility] Body temperature 2022-08-10 19:45:00 37 Yesika [facility] rate 2022-08-10 19:45:00 18 /min [facility] Body height 2022-08-10 19:45:00 154.9 cm [facility] Body weight 2022-08-10 19:45:00 75.479 kg [facility] BMI 2022-08-10 19:45:00 31.44 kg/m2 [facility] Oxygen saturation in 2022-08-10 19:45:00 98 /min [facility] Arterial blood by [facility] Pulse oximetry Branch height 2022-07-25 13:30:00 60.5 [in_i] Common S pirit - [facility] weight 2022-07-25 13:30:00 166.0 [lb_av] Common [facility] temperature 2022-07-25 13:30:00 96.9 [degF] Common [facility] bmi 2022-07-25 13:30:00 31.88 kg/m2 Common [facility] oximetry 2022-07-25 13:30:00 99 % Common [facility] respiratory rate 2022-07-25 13:30:00 18 /min Comm on [facility] blood pressure 2022-07-25 13:30:00 134 mm[Hg] Common [facility] - systolic [facility] blood pressure 2022-07-25 13:30:00 70 mm[Hg] Common [facility] - diastolic [facility] height 2022-04-24 13:00:00 60.5 [in_i] [facility] weight 2022-04-24 13:00:00 168 [lb_av] [facility] temperature 2022-04-24 13:00:00 97.6 [degF] [facility] bmi 2022-04-24 13:00:00 32.27 kg/m2 [facility] oximetry 2022-04-24 13:00:00 96 % Common [facility] respiratory rate 2022-04-24 13:00:00 16 /min Comm on [facility] blood pressure 2022-04-24 13:00:00 130 mm[Hg] Common [facility] - systolic [facility] blood pressure 2022-04-24 13:00:00 64 mm[Hg] Common [facility] - diastolic [facility] height 2022-04-24 14:15:00 60.5 [in_i] Common [facility] weight 2022-04-24 14:15:00 168 [lb_av] [facility] temperature 2022-04-24 14:15:00 97.6 [degF] Common [facility] bmi 2022-04-24 14:15:00 32.27 kg/m2 Common [facility] oximetry 2022-04-24 14:15:00 96 % Common [facility] respiratory rate 2022-04-24 14:15:00 16 /min Comm on [facility] blood pressure 2022-04-24 14:15:00 130 mm[Hg] Common [facility] - systolic [facility] blood pressure 2022-04-24 14:15:00 64 mm[Hg] Common [facility] - diastolic [facility] height 2022-01-23 10:10:00 61 [in_i] Common [facility] weight 2022-01-23 10:10:00 171.0 [lb_av] Common [facility] temperature 2022-01-23 10:10:00 97.9 [degF] Common [facility] bmi 2022-01-23 10:10:00 32.31 kg/m2 [facility] oximetry 2022-01-23 10:10:00 96 % Common [facility] respiratory rate 2022-01-23 10:10:00 17 /min Comm on [facility] blood pressure 2022-01-23 10:10:00 135 mm[Hg] Common [facility] systolic [facility] blood pressure 2022-01-23 10:10:00 77 mm[Hg] Common [facility] diastolic [facility] Procedures Procedure Date / Time Performed Performing Clinician [facility] e ASSIGNMENT OF BENEFITS 2022-08-10 19:23:36 Doctor Unassigned, No [facility] Branch Encounters Start End Encounter Admission Attending Care Care Encounter Source Date/Time Date/Time Type Type Clinicians Facility Department ID 2022-07-[address] [facility] [id number] Common 13:53:02 Jc [facility] 2022-01-23 Outpatient Blair, [facility] [id number] Common 10:07:03 Jc [id number] [facility] 2022-08-10 2022-08-10 Outpatient R KAMERON III, [facility] [id number] Univers 13:20:00 14:26:52 FABIAN ity of [facility] 2022-08-10 2022-08-10 Urgent KameronFabian [facility] [id number] Univers 13:20:00 13:40:00 Care Unknown, Attending HEALTH [id number] ity of [place] [id number] Da as JULI?BLEA [id number] Hi dical [address] MEDICAL OFFICE BUILDING 2022-08-10 2022-08-10 Orders Doctor SAMIRA [id number] Univers 00:00:00 00:00:00 Only Unassigned, KELSI [id number] ity of [place] [facility] [id number] Da as [id number] [address] 2022-07-31 2022-07-31 (TEL) STLMLC STLMLC [id number] Co mmon 00:00:00 00:00:00 Spirit - [facility] 2022-07-25 2022-07-25 OFFICE STLMLC STLMLC [id number] Co mmon 00:00:00 00:00:00 VISIT Spirit ESTAB PT - CHI LEVEL 4 [facility] 2022-07-16 2022-07-16 (TEL) STLMLC STLMLC [id number] Co mmon 00:00:00 00:00:00 Spirit - [facility] 2022-07-12 2022-07-12 (TEL) STLMLC STLMLC [id number] Co mmon 00:00:00 00:00:00 Spirit - [facility] 2022-05-20 2022-05-20 Outpatient Williams_V DMG DMG [id number] [facility] 00:00:00 00:00:00 0829 [facility] 2022-04-24 2022-04-24 OFFICE STLMLC STLMLC [id number] Co mmon 00:00:00 00:00:00 VISIT Spirit ESTAB PT - CHI LEVEL 4 [facility] 2022-04-24 2022-04-24 SUB ANNUAL STLC STLC [id number] Common 00:00:00 00:00:00 MCR Spirit WELLNESS - CHI VISIT [facility] 2022-04-05 2022-04-05 [id number] 08:10:00 08:10:00 0715 Medica l Group 2022-02-20 2022-02-20 (TEL) STLMLC STLMLC [id number] Co mmon 00:00:00 00:00:00 Spirit - [facility] 2022-02-04 2022-02-04 (TEL) STLMLC STLMLC [id number] Co mmon 00:00:00 00:00:00 Spirit - [facility] 2022-01-23 2022-01-23 OFFICE STLMLC STLMLC [id number] Co mmon 00:00:00 00:00:00 VISIT [facility] PT - CHI LEVEL 4 [facility] 2022-01-23 2022-01-23 (TEL) STLMLC STLMLC [id number] Co mmon 00:00:00 00:00:00 [facility] 2021-12-10 2021-12-10 CAV Laura [id number]. [id number] CLAC [id number] [facility] 20:00:00 21:00:00 Nivia [id number] [facility] [id number] 2021-10-23 2021-10-23 [facility] [id number] -2021 [facility] 06:54:00 06:54:00 0201 [facility] 2021-09-19 2021-09-19 [id number]2020 [facility] 01:04:00 01:04:00 1229 [facility] l Group 2021-08-01 2021-08-01 Outpatient [facility] [id number] [facility] 12:01:00 12:01:00 1110 Medica l Group 2021-01-02 2021-01-02 Outpatient Lee Ann [facility]WE[facility] [id number] Univers 10:00:00 10:00:00 DEEDEE braun [facility] 2020-12-12 2020-12-12 Outpatient Lee Ann [facility] [id number] Univers 15:50:00 15:50:00 DEEDEE [facility] 2020-09-17 2020-09-17 Laboratory Lab, [facility] Fam Pob I [facility] [id number]. [id number] Univers 13:16:13 13:36:13 Only [facility] [id number] ity of [place] [id number] Da as Professio [phone] Hi dical [address] [facility] 2020-09-17 2020-09-17 Laboratory Lab, [facility] [id number] 13:16:13 13:36:13 Only Fam Pob I Health [id number] [place] [id number] Professio [phone] [place] [address] [facility] 2020-09-17 2020-09-17 Outpatient R ANTONIO [facility] [id number] Univers 13:00:00 13:00:00 KIMMY [facility] 2020-09-17 2020-09-17 Outpatient R [facility] [id number] Univers 10:00:00 10:00:00 [id number] [facility] Results This patient has no known results.
[2022-08-12] MEDS ORDERED: HYDROCODONE/CHLORPHEN 5 ML/OSYR ONE (16:34)
--- NOTE | 2022-08-12 16:42 | RAD REPORT ---
EXAM DESCRIPTION: RAD - Chest Pa And Lat (2 Views) - 08/12/2022 4:33 pm CLINICAL HISTORY: COUGH Chest pain. COMPARISON: Chest Single View dated 02/02/2022; Chest Single View dated 09/23/2020; Chest Pa And Lat (2 Views) dated 07/31/2020; Chest Pa And Lat (2 Views) dated 04/02/2019 FINDINGS: The lungs are clear. The heart is upper limit of normal in size. No displaced fractures.
[2022-08-12 17:19] LABS: SARS-COV-2 RT PCR NEGATIVE (NEGATIVE)
--- NOTE | 2022-08-12 17:29 | ER ---
Nurse's Notes [facility] Name: Tori Sylvester Age: 67 yrs Sex: Female : 1955 Arrival Date: 08/12/2022 Time: 14:50 Bed Treatment Private MD: Jc Blair Diagnosis: Acute bronchitis, unspecified Presentation: 08/12 15:35 Chief complaint: Patient states: cough, runny nose, hx of asthma, Dr. Blair wanted a iw cxr , s/s Since last week , has not been checked for flu or covid was seen at [facility] and got prescribed cough medicine. Coronavirus screen: Client presents with at least one sign or symptom that may indicate coronavirus-19. Ebola Screen: Patient negative for fever greater than or equal to 101.5 degrees Fahrenheit, and additional compatible Ebola Virus Disease symptoms Patient denies exposure to infectious person. Patient denies travel to an Ebola-affected area in the 21 days before illness onset. No symptoms or risks identified at this time. Initial Sepsis Screen: Does the patient meet any 2 criteria? No. Patient's initial sepsis screen is negative. Does the patient have a suspected source of infection? No. Patient's initial sepsis screen is negative. Risk Assessment: Do you want to hurt yourself or someone else? Patient reports no desire to harm self or others. Onset of symptoms was August 06, 2022. 15:35 Method Of Arrival: Ambulatory iw 15:35 Acuity: CHER 4 iw Historical: - Allergies: 15:37 Levofloxacin; iw - PMHx: 15:37 Asthma; GERD; High Cholesterol; Hypertension; Uterine prolapse; iw - Immunization history:: Adult Immunizations up to date, Client reports receiving the 2nd dose of the Covid vaccine, Last tetanus immunization: unknown. - Social history:: Smoking status: Patient denies any tobacco usage or history of. Screenin:45 Abuse screen: Denies threats or abuse. Denies injuries from another. Nutritional kb3 screening: No deficits noted. Tuberculosis screening: No symptoms or risk factors identified. Fall Risk None identified. Assessment: 16:45 General: Appears in no apparent distress. Behavior is calm, cooperative, Received carer kb3 of pt from lobby, ambulatory, AAO x4. Pt reports cough, congestion, runny nose x 1 week. PT is concerned for pneumonia. NAD noted.. Pain: Denies pain. Respiratory: Reports cough that is productive, pain with cough. EENT: Reports nasal congestion nasal discharge that is yellow. Vital Signs: 15:35 BP 160 / 69; Pulse 112; Resp 16; Temp 98.6; Pulse Ox 98% on R/A; iw 18:13 BP 136 / 69; Pulse 93; Resp 20; Temp 98.2; Pulse Ox 96% ; kb3 ED Course: 14:50 Patient arrived in ED. rg4 14:50 Jc Blair DO is Private Physician. rg4 15:11 [facility]ed[facility]C [facility]. snw 15:11 Vamsi Calderon MD is Attending Physician. snw 15:37 Triage completed. iw 15:37 Arm band placed on. iw 15:53 Jia Mai, RN is Primary Nurse. kb3 16:28 Patient moved to radiology via wheelchair. kb3 16:28 No provider procedures requiring assistance completed. kb3 16:34 Chest Pa And Lat (2 Views) XRAY In Process Unspecified. EDMS 16:45 Patient has correct armband on for positive identification. kb3 16:45 Patient did not have IV access during this emergency room visit. kb3 17:28 Jc Blair DO is Referral Physician. snw Administered Medications: 16:40 Drug: Tussionex Pennkinetic ER (chlorpheniramine-hydrocodone) Suspension 5 ml Route: PO;kb3 17:30 Follow up: Response: No adverse reaction; Marked relief of symptoms kb3 Medication: 16:45 VIS not applicable for this client. kb3 Outcome: 17:28 Discharge ordered by . snw 18:14 Discharged to home ambulatory. kb3 18:14 Condition: stable 18:14 Discharge instructions given to patient, Instructed on discharge instructions, follow up and referral plans. medication usage, Demonstrated understanding of instructions, follow-up care, medications, Prescriptions given X 3. 18:14 Patient left the ED. kb3 Signatures: Dispatcher [employer] EDMS Erica Cedeno FNP-C FENCE BUILDER-Csnw Helena Pyle RN RN iw Christelle Muro rg4 Jia Mai, RN RN kb3 Corrections: (The following items were deleted from the chart) 18:12 18:10 General: Appears in no apparent distress. Behavior is calm, cooperative, Received kb3 carer of pt from [facility], AAO x4. Pt reports cough, congestion, runny nose x 1 week. PT is concerned for pneumonia. NAD noted.. kb3 18:12 18:10 Pain: Denies pain. kb3 kb3 18:12 18:10 Respiratory: Reports cough that is productive, pain with cough kb3 kb3 18:12 18:10 EENT: Reports nasal congestion nasal discharge that is yellow kb3 kb3
--- NOTE | 2022-08-12 17:29 | EDPHYS ---
Physician Documentation [facility] Name: Tori Sylvester Age: 67 yrs Sex: Female : 1955 Arrival Date: 08/12/2022 Time: 14:50 Bed Treatment Private MD: [facility] ED Physician Vamsi Calderon HPI: 08/12 16:14 This 67 yrs old Female presents to ER via Ambulatory with complaints of Cough, snw Runny Nose. 16:14 The patient or guardian reports cough. Onset: The symptoms/episode began/occurred snw acutely, suddenly. Severity of symptoms: At their worst the symptoms were moderate, in the emergency department the symptoms are unchanged. The patient has experienced a previous episode. The patient has been recently seen by a physician: [facility] - given methylprednisone and benzonatate. Historical: - Allergies: 15:37 Levofloxacin; iw - PMHx: 15:37 Asthma; GERD; High Cholesterol; Hypertension; Uterine prolapse; iw - Immunization history:: Adult Immunizations up to date, Client reports receiving the 2nd dose of the Covid vaccine, Last tetanus immunization: unknown. - Social history:: Smoking status: Patient denies any tobacco usage or history of. ROS: 16:13 Eyes: Negative for injury, pain, redness, and discharge, ENT: Negative for injury, snw pain, and discharge, Neck: Negative for injury, pain, and swelling, Cardiovascular: Negative for chest pain, palpitations, and edema. 16:13 Abdomen/GI: Negative for abdominal pain, nausea, vomiting, diarrhea, and constipation, Back: Negative for injury and pain, : Negative for injury, bleeding, discharge, and swelling, MS/Extremity: Negative for injury and deformity, Skin: Negative for injury, rash, and discoloration, Neuro: Negative for headache, weakness, numbness, tingling, and seizure. 16:13 Constitutional: Positive for body aches, fatigue, malaise. 16:13 Respiratory: Positive for cough, with no reported sputum. Exam: 16:12 Constitutional: This is a well developed, well nourished patient who is awake, alert, snw and in no acute distress. Head/Face: Normocephalic, atraumatic. Eyes: Pupils equal round and reactive to light, extra-ocular motions intact. Lids and lashes normal. Conjunctiva and sclera are non-icteric and not injected. Cornea within normal limits. Periorbital areas with no swelling, redness, or edema. 16:12 Neck: Trachea midline, no thyromegaly or masses palpated, and no cervical lymphadenopathy. Supple, full range of motion without nuchal rigidity, or vertebral point tenderness. No Meningismus. Chest/axilla: Normal chest wall appearance and motion. Nontender with no deformity. No lesions are appreciated. 16:12 Abdomen/GI: Soft, non-tender, with normal bowel sounds. No distension or tympany. No guarding or rebound. No evidence of tenderness throughout. Back: No spinal tenderness. No costovertebral tenderness. Full range of motion. Skin: Warm, dry with normal turgor. Normal color with no rashes, no lesions, and no evidence of cellulitis. MS/ Extremity: Pulses equal, no cyanosis. Neurovascular intact. Full, normal range of motion. Neuro: Awake and alert, GCS 15, oriented to person, place, time, and situation. Cranial nerves II-XII grossly intact. Motor strength 5/5 in all extremities. Sensory grossly intact. Cerebellar exam normal. Normal gait. 16:12 ENT: Ear canal(s): are normal, TM's: are normal, Nose: Nasal mucosa: edematous, Mouth: is normal, Posterior pharynx: is normal, Voice: is normal. 16:12 Cardiovascular: Rate: tachycardic, Heart sounds: gallop, S3 noted, Edema: is not appreciated. 16:12 Respiratory: the patient does not display signs of respiratory distress, Respirations: normal, Breath sounds: rhonchi, that are mild, incessant cough. Vital Signs: 15:35 BP 160 / 69; Pulse 112; Resp 16; Temp 98.6; Pulse Ox 98% on R/A; iw 18:13 BP 136 / 69; Pulse 93; Resp 20; Temp 98.2; Pulse Ox 96% ; kb3 MDM: 15:54 Patient medically screened. snw 16:14 Data reviewed: vital signs, nurses notes. Data interpreted: Pulse oximetry: on room air snw is 98 %. Interpretation: normal. 17:27 Counseling: I had a detailed discussion with the patient and/or guardian regarding: the snw historical points, exam findings, and any diagnostic results supporting the discharge/admit diagnosis, the presence of at least one elevated blood pressure reading (>120/80) during this emergency department visit, lab results, radiology results, the need for outpatient follow up, to return to the emergency department if symptoms worsen or persist or if there are any questions or concerns that arise at home. Special discussion: I have referred the patient to see his PCP for further evaluation of high blood pressure. Based on the history and exam findings, there is no indication for further emergent testing or inpatient evaluation. I discussed with the patient/guardian the need to see the primary care provider for further evaluation of the symptoms. 08/12 15:38 Order name: COVID-19/FLU A+B/RSV; Complete Time: 17:24 snw 08/12 15:40 Order name: Chest Pa And Lat (2 Views) XRAY; Complete Time: 16:43 snw Administered Medications: 16:40 Drug: Tussionex Pennkinetic ER (chlorpheniramine-hydrocodone) Suspension 5 ml Route: PO;kb3 17:30 Follow up: Response: No adverse reaction; Marked relief of symptoms kb3 Disposition: 16:43 Co-signature as Attending Physician, Vamsi Calderon MD I agree with the assessment and rt plan of care. Disposition Summary: 08/12/22 17:28 Discharge Ordered Location: Home snw Condition: Stable snw Diagnosis - Acute bronchitis, unspecified snw Followup: snw - With: Jc Blair DO - When: 2 - 3 days - Reason: Recheck today's complaints, Continuance of care, Re-evaluation by your physician Followup: snw - With: Emergency Department - When: As needed - Reason: Worsening of condition Discharge Instructions: - Discharge Summary Sheet snw - Acute Bronchitis, Adult snw - Rehydration, Adult snw Forms: - Medication Reconciliation Form snw - Thank You Letter snw - Antibiotic Education snw - Prescription Opioid Use snw Prescriptions: - Zyrtec 10 mg Oral Tablet - take 1 tablet by ORAL route once daily As needed; 20 tablet; Refills: 0, snw Product Selection Permitted - Pepcid 20 mg Oral Tablet - take 1 tablet by ORAL route once daily; 20 tablet; Refills: 0, Product snw Selection Permitted - Tylenol-Codeine #3 300 mg-30 mg Oral - take 1 tablet by ORAL route every 8 hours; 12 tablet; Refills: 0, Product snw Selection Permitted Signatures: Dispatcher [employer] EDMS Erica Cedeno, [employer] INTERLEAFER-C [employer] INTERLE[employer]ER-Csnw Helena Pyle, RN RITO iw Jia Mai RN RN kb3 Vamsi Calderon MD MD rt
[2022-08-12 18:31] VITALS: BP 136/69; TEMP 98.2; O2SAT 96
== END 2022-08-12 18:14 | disposition home or self-care (01) ==
LOC: ER 14:46
DX: J20.9 Acute bronchitis, unspecified (principal); Z20.822 Contact with and (suspected) exposure to COVID-19; Z88.1 Allergy status to other antibiotic agents; I10 Essential (primary) hypertension
CPT/HCPCS: 0241U; 71046; 99283

== ENCOUNTER 2024-10-18 10:49 | Emergency (ER) | payer MEDICARE, OTHER ==
--- OUTSIDE RECORDS SUMMARY | 2024-10-18 10:54 | XMS REPORT | Continuity of Care Document ---
Author Name Unknown Address [address] [facility] [address] [place] [address] [facility] [address] [facility] [address] [place] [address] Care Team Providers Care Customer [employer] Supervisor Name Role Phone Johnnie NEAL [facility] Primary Care Physician + Jc Blair Attending Clinician Unavailable Peyton Joy DPM Attending Clinician [phone] PEYTON JOY Attending Clinician Elba Voss Attending Clinician GC_GCBZW_Kadiyala_S Attending Clinician Unavaila ble Williams_V Attending Clinician Unavailable Fulminar_S Attending Clinician Unavailable FABIAN MELO III Attending Clinician Unavailleoy Melo III, MD, James C Attending Clinician [phone] Unknown, Attending Attending Clinician Unavailab le Doctor Unassigned, [place] Attending Clinician U navailable BWillikady Attending Clinician Unavailable Laura Gonzáles Attending Clinician DEEDEE ROCKWELL Attending Clinician Unavailable Lab, Adc Fam Pob I Attending Clinician Unavailab Kimmy Awan Attending Clinician [phone] KIMMY ALVAREZ Attending Clinician Unavailable GC_GCBZW_Kadiyala_S Admitting Clinician Unavaila ble Williams_V Admitting Clinician Unavailable Fulminar_S Admitting Clinician Unavailable BWilliams Admitting Clinician Unavailable Payers Payer Name Policy Type Policy Number Effective Date Expirati on Date Source [employer] Medicare [id number] 00:00:00 [employer] (MEDICARE REPLACEMENT HMO) [id number] 2021 00:00:00 [employer] MEDICARE ADVANTAGE PLAN [id number] 2022 00:00:00 [facility] [place] [id number] 00:00:00 [employer] [place] - OUT OF STATE [id number] 2012 00:00:00 Problems Condition Name Condition Details Condition Category Status Onset Date Resolution Date Last Treatment Date Treating Clinician Comments Source Diabetes mellitus Diabetes Mellitus Problem Active 1-16 00:00: 00 [facility] Nocturia Nocturia Problem Active 1-16 00:00: 00 [facility] Acute urinary tract infection Acute Urinary Tract Infection Problem Active 1-08 00:00: 00 [facility] Muscle atrophy Muscle Atrophy Problem Active 2-07 00:00: 00 [facility] Iron deficiency anemia Iron Deficiency Anemia Problem Active 9-23 00:00: 00 [facility] Fatigue Fatigue Problem Active 9-23 00:00: 00 [facility] Bilateral localized swelling of lower limbs Bilateral Localized Swelling of Lower Limbs Problem Active 8-11 00:00: 00 [facility] Mass of lower limb Mass of Lower Limb Problem Active 8-11 00:00: 00 [facility] Type 2 diabetes mellitus without complicati on Type 2 Diabetes Mellitus without Complicati on Problem Active 4-12 00:00: 00 [facility] Sensation as if urinary bladder still full Sensation as If Urinary Bladder Still Full Problem Active 4-12 00:00: 00 [facility] Overactive urinary bladder Overactive Urinary Bladder Problem Active 4-06 00:00: 00 [facility] Pain of breast Pain of Breast Problem Active 3-30 00:00: 00 [facility] Screening mammograph y Screening Mammograph y Problem Active 3- 00:00: 00 [facility] Pneumonia caused by Severe acute respirator y syndrome coronaviru s Pneumonia Caused by Severe Acute Respirator y Syndrome Coronaviru s Problem Active 10-09 00:00: 00 [facility] Incomplete uterovagin al prolapse Incomplete Uterovagin al Prolapse Problem Active 2019-09 0 00:00: 00 [facility] Microscopi c hematuria Microscopi c Hematuria Problem Active 06-09 00:00: 00 [facility] Amenorrhea Amenorrhea Problem Active 06-09 00:00: 00 [facility] Upper abdominal pain Upper Abdominal Pain Problem Active 06-09 00:00: 00 [facility] Increased frequency of urination Increased Frequency of Urination Problem Active 11-10 00:00: 00 [facility] Hyperglyce roldan due to type 2 diabetes mellitus Hyperglyce roldan Due to Type 2 Diabetes Mellitus Problem Active 11-10 00:00: 00 [facility] History of urinary tract infection History of Urinary Tract Infection Problem Active 2017-09 00:00: 00 [facility] Screening for malignant neoplasm of colon Screening for Malignant Neoplasm of Colon Problem Active 2017-09 00:00: 00 [facility] Menopause present Menopause Present Problem Active 2017-09 00:00: 00 [facility] Essential hypertensi on Essential Hypertensi on Problem Active 02-14 00:00: 00 [facility] Urinary tract infectious disease Urinary Tract Infectious Disease Problem Active 02-14 00:00: 00 [facility] Herniation of rectum into vagina Herniation of Rectum into Vagina Problem Active 02-14 00:00: 00 [facility] Genuine stress incontinen ce Genuine Stress Incontinen ce Problem Active 02-14 00:00: 00 [facility] Lateral cystocele Lateral Cystocele Problem Active 03-15 00:00: 00 [facility] Atrophic vaginitis Atrophic Vaginitis Problem Active 03-15 00:00: 00 [facility] Urge incontinen ce of urine Urge Incontinen ce of Urine Problem Active 03-15 00:00: 00 [facility] Gynecologi gracie examinatio n abnormal Gynecologi gracie Examinatio n Abnormal Problem Active 03-15 00:00: 00 [facility] No known active problems No known active problems Disease [facility] [id number] Memory changes Problem [facility] [id number] Recurrent sinus infections Problem [facility] [id number] Acute intractabl e tension-ty pe headache Problem [facility] Anemia Anemia, unspecifie d type Problem [facility] [id number] Body mass index [BMI] 32.0-32.9, adult Problem [facility] [id number] Other obesity due to excess calories Problem [facility] [id number] Moderate persistent asthma, unspecifie d whether complicate d Problem [facility] [id number] Non-season al allergic rhinitis, unspecifie d trigger Problem [facility] [id number] GERD without esophagiti s Problem [facility] [id number] Mixed hyperlipid emia Problem [facility] [id number] Type 2 diabetes mellitus with hyperglyce roldan, without long-term current use of insulin Problem [facility] [id number] Nonalcohol ic fatty liver disease Problem [facility] Exacerbati on of asthma Asthma exacerbati on Problem [facility] [id number] Type 2 diabetes mellitus with other diabetic kidney complicati on Problem [facility] [id number] Female bladder prolapse Problem [facility] [id number] Chronic sinusitis, unspecifie d location Problem [facility] 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-COVID syndrome Problem [facility] Allergies, Adverse Reactions, Alerts Allergy Name Allergy Type Status Severity Reaction(s) Onset Date Inactive Date Treating Clinician Comments Source LEVOFLOX ACIN DRUG INGREDI Active Anxiety 2021-09 00:00: 00 [facility] Levoflox acin Propensi ty to adverse reaction s Active Anxiety 2021-09 00:00: 00 [facility] LEVAQUIN Allergy to substanc e Active Dizziness [facility] NO KNOWN ALLERGIE S Drug Class Active [facility] Levaquin Drug Allergy Active [facility] 89383 Drug allergy Active nausea and vomiting [facility] ALLERGIE S NOT ON FILE SYSTEMIC Active [facility] ALLERGIE S NOT ON FILE SYSTEMIC Active [facility] Social History Social Habit Start Date Stop Date Quantity Comments Source Gender identity 2023-12-14 15:05:01 Identifies as female gender (finding) [facility] ASSERTION Possible [facility] Sexual orientation [facility] History of Tobacco Use [facility] Sex Assigned At [facility] Exposure to SARS-CoV-2 (event) 2022-07-31 00:00:00 2022-08-10 13:43:00 Not sure [facility] Smoking Status Start Date Stop Date Source Tobacco smoking consumption unknown [facility] Never Smoker [facility] Medications Ordered Medication Name Filled Medication Name Start Date Stop Date Current Medication? Ordering Clinician Indication Dosage Frequency Signature (SIG) Comments Components Source Ketorolac 15mg Ketorolac 15mg 2023-09 0-04 00:00: 00 No 30mg [facility] OneTouch Ultra 2 w/Device OneTouch Ultra 2 w/Device 2- 00:00: 00 No OneTouch Ultra 2 w/Device Kenalog (Triamcinol one) Kenalog (Triamcinol one) 18 00:00: 00 No 40mg [facility] Breo Ellipta 200-25 MCG/INH Breo Ellipta 200-25 MCG/INH 1- 00:00: 00 No 1{puff} QD Breo Ellipta 200-25 MCG/INH benzonatate 100 mg capsule 2021-09 00:00: 00 Yes [id number] 100mg Take 1 capsule by mouth every 8 (eight) hours as needed for Cough. [facility] Methylpredn isolone 4 mg tablet 2021-09 00:00: 00 08-16 05:59 :00 No [id number] 4mg Take 1 tablet by mouth every 12 (twelve) hours for 5 days. [facility] Blood Glucose System Luc[facility] - Blood Glucose System [facility] - 2 00:00: 00 No [facility] - LUMIGAN 0.01 % SOLUTION LUMIGAN 0.01 % SOLUTION Yes [facility] BREO ELLIPTA 200-25 MCG/INH AERO POW BR ACT BREO ELLIPTA 200-25 MCG/INH AERO POW BR ACT Yes [facility] diltiazem hcl er coated beads 240 mg capsule er 24 hr diltiazem hcl er coated beads 240 mg capsule er 24 hr Yes [facility] pantoprazol e sodium [address] pantoprazol e sodium [address] Yes [facility] gemfibrozil 600 mg tablet gemfibrozil 600 mg tablet Yes [facility] ipratropium -albuterol 0.5-2.5 (3) mg/3ml solution ipratropium -albuterol 0.5-2.5 (3) mg/3ml solution Yes [facility] TRADJENTA 5 MG TABLET TRADJENTA 5 MG TABLET Yes [facility] albuterol sulfate hfa 108 (90 base) mcg/act aerosol soln albuterol sulfate hfa 108 (90 base) mcg/act aerosol soln Yes [facility] albuterol sulfate HFA 90 mcg/actuati on aerosol inhaler INHALE 2 PUFFS BY MOUTH EVERY 4 HOURS NEEDED albuterol sulfate HFA 90 mcg/actuati on aerosol inhaler INHALE 2 PUFFS BY MOUTH EVERY 4 HOURS NEEDED No albuterol sulfate HFA 90 mcg/actuat ion aerosol inhaler INHALE 2 PUFFS BY MOUTH EVERY 4 HOURS NEEDED [facility] COMBIGAN 0.2-0.5 % SOLUTION COMBIGAN 0.2-0.5 % SOLUTION Yes [facility] rosuvastati n calcium 5 mg tablet rosuvastati n calcium 5 mg tablet Yes [facility] ciclopirox 8 % topical solution APPLY ONE APPLICATION TOPICALLY EVERY NIGHT AT BEDTIME ciclopirox 8 % topical solution APPLY ONE APPLICATION TOPICALLY EVERY NIGHT AT BEDTIME No ciclopirox 8 % topical solution APPLY ONE APPLICATIO N TOPICALLY EVERY NIGHT AT BEDTIME [facility] losartan potassium-h ctz 100-12.5 mg tablet losartan potassium-h ctz 100-12.5 mg tablet Yes [facility] diltiazem CD 240 mg capsule,ext ended release 24 hr TAKE 1 CAPSULE BY MOUTH EVERY DAY diltiazem CD 240 mg capsule,ext ended release 24 hr TAKE 1 CAPSULE BY MOUTH EVERY DAY No diltiazem CD 240 mg capsule,ex tended release 24 hr TAKE 1 CAPSULE BY MOUTH EVERY DAY [facility] estradiol 0.01% (0.1 mg/gram) vaginal cream (0.5 gm) as directed with applicator; three times a week; 30 days estradiol 0.01% (0.1 mg/gram) vaginal cream (0.5 gm) as directed with applicator; three times a week; 30 days No estradiol 0.01% (0.1 mg/gram) vaginal cream (0.5 gm) as directed with applicator ; three times a week; 30 days [facility] gemfibrozil 600 mg tablet TAKE 1 TABLET BY MOUTH TWICE DAILY gemfibrozil 600 mg tablet TAKE 1 TABLET BY MOUTH TWICE DAILY No gemfibrozi l 600 mg tablet TAKE 1 TABLET BY MOUTH TWICE DAILY [facility] ipratropium 0.5 mg-albutero l 3 mg (2.5 mg base)/3 mL nebulizatio n soln USE 3 ML VIA NEBULIZER EVERY 6 HOURS FOR 14 DAYS NEEDED ipratropium 0.5 mg-albutero l 3 mg (2.5 mg base)/3 mL nebulizatio n soln USE 3 ML VIA NEBULIZER EVERY 6 HOURS FOR 14 DAYS NEEDED No ipratropiu m 0.5 mg-albuter ol 3 mg (2.5 mg base)/3 mL nebulizati on soln USE 3 ML VIA NEBULIZER EVERY 6 HOURS FOR 14 DAYS NEEDED [facility] Pantoprazol e Sodium 40 MG Pantoprazol e Sodium 40 MG No Pantoprazo le Sodium 40 MG OneTouch Delica Plus [id number] - OneTouch Delica Plus [id number] - No OneTouch Delica Plus [id number] - Losartan Potassium-H CTZ 100-12.5 MG Losartan Potassium-H CTZ 100-12.5 MG No 1{table t} QD Losartan Potassium- HCTZ 100-12.5 MG Rosuvastati n Calcium 5 MG Rosuvastati n Calcium 5 MG No 1{table t} QD Rosuvastat in Calcium 5 MG dilTIAZem HCl ER Coated Beads 240 MG dilTIAZem HCl ER Coated Beads 240 MG No dilTIAZem HCl ER Coated Beads 240 MG Combigan 0.2-0.5 % Combigan 0.2-0.5 % No 1{drop_ into_af fected_ eye} BID Combigan 0.2-0.5 % Aspirin 81 81 MG Aspirin 81 81 MG No 1{table t} QD Aspirin 81 81 MG Gemfibrozil 600 MG Gemfibrozil 600 MG No Gemfibrozi l 600 MG Tradjenta 5 MG Tradjenta 5 MG No 1{table t} QD Tradjenta 5 MG Claritin 10 MG Claritin 10 MG No 1{table t} QD Claritin 10 MG Blood Glucose Test - Blood Glucose Test - No BID Blood Glucose Test - losartan 100 mg-hydrochl orothiazide 12.5 mg tablet TAKE 1 TABLET BY MOUTH DAILY losartan 100 mg-hydrochl orothiazide 12.5 mg tablet TAKE 1 TABLET BY MOUTH DAILY No losartan 100 mg-hydroch lorothiazi de 12.5 mg tablet TAKE 1 TABLET BY MOUTH DAILY [facility] Lumigan 0.01 % eye drops INSTILL 1 DROP INTO EACH EYE ONCE A DAY AT BEDTIME. Lumigan 0.01 % eye drops INSTILL 1 DROP INTO EACH EYE ONCE A DAY AT BEDTIME. No Lumigan 0.01 % eye drops INSTILL 1 DROP INTO EACH EYE ONCE A DAY AT BEDTIME. [facility] OneTouch Delica Plus Lancet 30 gauge USE DIRECTED TWICE DAILY OneTouch Delica Plus Lancet 30 gauge USE DIRECTED TWICE DAILY No OneTouch Delica Plus Lancet 30 gauge USE DIRECTED TWICE DAILY [facility] OneTouch Delica Plus Lancet 33 gauge USE DIRECTED TWICE DAILY OneTouch Delica Plus Lancet 33 gauge USE DIRECTED TWICE DAILY No OneTouch Delica Plus Lancet 33 gauge USE DIRECTED TWICE DAILY [facility] OneTouch Ultra Test strips USE 1 STRIP TWICE DAILY OneTouch Ultra Test strips USE 1 STRIP TWICE DAILY No OneTouch Ultra Test strips USE 1 STRIP TWICE DAILY [facility] OneTouch Ultra2 Meter USE DIRECTED OneTouch Ultra2 Meter USE DIRECTED No OneTouch Ultra2 Meter USE DIRECTED [facility] pantoprazol e 40 mg tablet,celso yed release TAKE 1 TABLET BY MOUTH DAILY pantoprazol e 40 mg tablet,celso yed release TAKE 1 TABLET BY MOUTH DAILY No pantoprazo le 40 mg tablet,del ayed release TAKE 1 TABLET BY MOUTH DAILY [facility] rosuvastati n 5 mg tablet TAKE 1 TABLET BY MOUTH DAILY rosuvastati n 5 mg tablet TAKE 1 TABLET BY MOUTH DAILY No rosuvastat in 5 mg tablet TAKE 1 TABLET BY MOUTH DAILY [facility] Tradjenta 5 mg tablet TAKE 1 TABLET BY MOUTH DAILY Tradjenta 5 mg tablet TAKE 1 TABLET BY MOUTH DAILY No Tradjenta 5 mg tablet TAKE 1 TABLET BY MOUTH DAILY [facility] Immunizations Ordered Immunization Name Filled Immunization Name Date Status Comments Source FluAD FluAD 2021-07-11 14:13:00 Completed [facility] FluAD FluAD 2021-07-11 14:13:00 Completed [facility] FluAD FluAD 2021-07-11 14:13:00 Completed [facility] FluAD FluAD 2021-07-11 14:13:00 Completed [facility] FluAD FluAD 2021-07-11 14:13:00 Completed [facility] FluAD FluAD 2021-07-11 14:13:00 Completed [facility] FluAD FluAD 2021-07-11 14:13:00 Completed [facility] FluAD FluAD 2021-07-11 14:13:00 Completed [facility] FluAD FluAD 2021-07-11 14:13:00 Completed [facility] SARS-COV-2 COVID-19 PFIZER VACCINE 2021-01-02 00:00:00 Completed [facility] SARS-COV-2 COVID-19 PFIZER VACCINE 2021-01-02 00:00:00 Completed [facility] SARS-COV-2 COVID-19 PFIZER VACCINE 2020-12-12 00:00:00 Completed [facility] SARS-COV-2 COVID-19 PFIZER VACCINE 2020-12-12 00:00:00 Completed [facility] FluAD FluAD Unknown Completed [facility] Boostrix (Tdap) Boostrix (Tdap) Unknown Completed [facility] FluAD FluAD Unknown Completed [facility] Boostrix (Tdap) Boostrix (Tdap) Unknown Completed [facility] FluAD FluAD Unknown [facility]pleted [facility] Boostrix (Tdap) Boostrix (Tdap) Unknown Completed [facility] FluAD FluAD Unknown Completed [facility] Boostrix (Tdap) Boostrix (Tdap) Unknown Completed [facility] FluAD FluAD Unknown Completed [facility] Boostrix (Tdap) Boostrix (Tdap) Unknown Completed [facility] FluAD FluAD Unknown Completed [facility] Boostrix (Tdap) Boostrix (Tdap) Unknown Completed [facility] FluAD FluAD Unknown Completed [facility] Boostrix (Tdap) Boostrix (Tdap) Unknown Completed [facility] FluAD FluAD Unknown Completed [facility] Boostrix (Tdap) Boostrix (Tdap) Unknown Completed [facility] FluAD FluAD Unknown Completed [facility] Boostrix (Tdap) Boostrix (Tdap) Unknown Completed [facility] FluAD FluAD Unknown Completed [facility] Boostrix (Tdap) Boostrix (Tdap) Unknown Completed [facility] FluAD FluAD Unknown Completed [facility] Boostrix (Tdap) Boostrix (Tdap) Unknown Completed [facility] FluAD FluAD Unknown Completed [facility] Boostrix (Tdap) Boostrix (Tdap) Unknown Completed [facility] FluAD FluAD Unknown Completed [facility] Boostrix (Tdap) Boostrix (Tdap) Unknown Completed [facility] FluAD FluAD Unknown Completed [facility] Boostrix (Tdap) Boostrix (Tdap) Unknown Completed [facility] FluAD FluAD Unknown Completed [facility] Boostrix (Tdap) Boostrix (Tdap) Unknown Completed [facility] FluAD FluAD Unknown Completed [facility] Boostrix (Tdap) Boostrix (Tdap) Unknown Completed [facility] FluAD FluAD Unknown Completed [facility] Boostrix (Tdap) Boostrix (Tdap) Unknown Completed [facility] FluAD FluAD Unknown Completed [facility] Boostrix (Tdap) Boostrix (Tdap) Unknown Completed [facility] FluAD FluAD Unknown Completed [facility] Boostrix (Tdap) Boostrix (Tdap) Unknown Completed [facility] FluAD FluAD Unknown Completed [facility] Boostrix (Tdap) Boostrix (Tdap) Unknown Completed [facility] FluAD FluAD Unknown Completed [facility] Boostrix (Tdap) Boostrix (Tdap) Unknown Completed [facility] FluAD FluAD Unknown Completed [facility] Boostrix (Tdap) Boostrix (Tdap) Unknown Completed [facility] FluAD FluAD Unknown Completed [facility] Boostrix (Tdap) Boostrix (Tdap) Unknown Completed [facility] FluAD FluAD Unknown Completed [facility] Boostrix (Tdap) Boostrix (Tdap) Unknown Completed [facility] FluAD FluAD Unknown Completed [facility] Boostrix (Tdap) Boostrix (Tdap) Unknown Completed [facility] FluAD FluAD Unknown Completed [facility] Boostrix (Tdap) Boostrix (Tdap) Unknown Completed [facility] FluAD FluAD Unknown Completed [facility] Boostrix (Tdap) Boostrix (Tdap) Unknown Completed [facility] FluAD FluAD Unknown Completed [facility] Boostrix (Tdap) Boostrix (Tdap) Unknown Completed [facility] FluAD FluAD Unknown Completed [facility] Boostrix (Tdap) Boostrix (Tdap) Unknown Completed [facility] Vital Signs Vital Name Observation Time Observation Value Comments S ource BMI (Body Mass Index) 2024-10-07 00:00:00 28.2 kg/m2 [facility] Height 2024-10-07 00:00:00 63 [in_i] [facility] BP Diastolic 2024-10-07 00:00:00 62 mm[Hg] [facility] BP Systolic 2024-10-07 00:00:00 114 mm[Hg] [facility] Body Weight 2024-10-07 00:00:00 159 [lb_av] [facility] height 2024-09-03 10:15:00 60.5 [in_i] [facility] weight 2024-09-03 10:15:00 162 [lb_av] [facility] temperature 2024-09-03 10:15:00 97.6 [degF] [facility] bmi 2024-09-03 10:15:00 31.11 kg/m2 [facility] oximetry 2024-09-03 10:15:00 96 % [facility] respiratory rate 2024-09-03 10:15:00 18 /min [facility] blood pressure systolic 2024-09-03 10:15:00 136 mm[Hg] [facility] blood pressure diastolic 2024-09-03 10:15:00 62 mm[Hg] [facility] height 2024-08-10 15:40:00 60.5 [in_i] [facility] weight 2024-08-10 15:40:00 164 [lb_av] [facility] temperature 2024-08-10 15:40:00 97.4 [degF] [facility] bmi 2024-08-10 15:40:00 31.5 kg/m2 [facility] oximetry 2024-08-10 15:40:00 97 % [facility] respiratory rate 2024-08-10 15:40:00 18 /min [facility] blood pressure systolic 2024-08-10 15:40:00 137 mm[Hg[facility] diastolic 2024-08-10 15:40:00 66 mm[Hg] [facility] height 2024-06-25 08:00:00 60.5 [in_i] [facility] weight 2024-06-25 08:00:00 161.0 [lb_av] [facility] temperature 2024-06-25 08:00:00 97.5 [degF] Com [facility] bmi 2024-06-25 08:00:00 30.92 kg/m2 [facility] oximetry 2024-06-25 08:00:00 98 % [facility] respiratory rate 2024-06-25 08:00:00 18 /min [facility] blood pressure systolic 2024-06-25 08:00:00 139 mm[Hg] [facility] blood pressure diastolic 2024-06-25 08:00:00 63 mm[Hg] [facility] height 2024-05-31 09:00:00 60.5 [in_i] [facility] weight 2024-05-31 09:00:00 162.6 [lb_av] [facility] temperature 2024-05-31 09:00:00 97.5 [degF] Com [facility] bmi 2024-05-31 09:00:00 31.23 kg/m2 [facility] oximetry 2024-05-31 09:00:00 98 % [facility] respiratory rate 2024-05-31 09:00:00 17 /min [facility] blood pressure systolic 2024-05-31 09:00:00 138 mm[Hg] [facility] blood pressure diastolic 2024-05-31 09:00:00 65 mm[Hg] [facility] height 2024-05-31 09:00:00 60.5 [in_i] [facility] weight 2024-05-31 09:00:00 162.6 [lb_av] [facility] temperature 2024-05-31 09:00:00 97.5 [degF] Com [facility] bmi 2024-05-31 09:00:00 31.23 kg/m2 [facility] oximetry 2024-05-31 09:00:00 98 % [facility] respiratory rate 2024-05-31 09:00:00 17 /min [facility] blood pressure systolic 2024-05-31 09:00:00 138 mm[Hg[facility] blood pressure diastolic 2024-05-31 09:00:00 65 mm[Hg] [facility] height 2024-04-27 16:10:00 60.5 [in_i] [facility] weight 2024-04-27 16:10:00 163 [lb_av] [facility] temperature 2024-04-27 16:10:00 97.4 [degF] Com [facility] bmi 2024-04-27 16:10:00 31.31 kg/m2 [facility] oximetry 2024-04-27 16:10:00 99 % [facility] blood pressure systolic 2024-04-27 16:10:00 130 mm[Hg] [facility] blood pressure diastolic 2024-04-27 16:10:00 74 mm[Hg] [facility] height 2024-04-27 16:10:00 60.5 [in_i] [facility] weight 2024-04-27 16:10:00 163 [lb_av] [facility] temperature 2024-04-27 16:10:00 97.4 [degF] Com [facility] bmi 2024-04-27 16:10:00 31.31 kg/m2 Comm on [facility] oximetry 2024-04-27 16:10:00 99 % Commo n [facility] blood pressure systolic 2024-04-27 16:10:00 130 mm[Hg] [facility] blood [facility] diastolic 2024-04-27 16:10:00 74 mm[Hg] Common [facility] height 2024-02-06 11:20:00 60.5 [in_i] Comm on [facility] weight 2024-02-06 11:20:00 158.6 [lb_av] Co mmon [facility] temperature 2024-02-06 11:20:00 97.7 [degF] Com mon [facility] bmi 2024-02-06 11:20:00 30.46 kg/m2 Comm on [facility] oximetry 2024-02-06 11:20:00 98 % Commo n [facility] respiratory rate 2024-02-06 11:20:00 17 /min Common [facility] blood pressure systolic 2024-02-06 11:20:00 125 mm[Hg] [facility] blood pressure diastolic 2024-02-06 11:20:00 60 mm[Hg] Common [facility] height 2023-11-18 13:00:00 60.5 [in_i] Comm on [facility] weight 2023-11-18 13:00:00 157 [lb_av] Comm on [facility] temperature 2023-11-18 13:00:00 97.7 [degF] Com mon [facility] bmi 2023-11-18 13:00:00 30.15 kg/m2 Comm on [facility] oximetry 2023-11-18 13:00:00 98 % Commo n [facility] blood pressure systolic 2023-11-18 13:00:00 124 mm[Hg] [facility] blood pressure diastolic 2023-11-18 13:00:00 72 mm[Hg] Common [facility] height 2023-11-10 10:10:00 60.5 [in_i] Comm on [facility] weight 2023-11-10 10:10:00 160.2 [lb_av] Co mmon [facility] temperature 2023-11-10 10:10:00 97.8 [degF] Com [facility] bmi 2023-11-10 10:10:00 30.77 kg/m2 Comm on [facility] oximetry 2023-11-10 10:10:00 96 % Commo n [facility] blood pressure systolic 2023-11-10 10:10:00 126 mm[Hg] Common [facility] blood pressure diastolic 2023-11-10 10:10:00 70 mm[Hg] Common [facility] height 2023-11-10 10:10:00 60.5 [in_i] Comm on [facility] weight 2023-11-10 10:10:00 160.2 [lb_av] Co mmon [facility] temperature 2023-11-10 10:10:00 97.8 [degF] Com [facility] bmi 2023-11-10 10:10:00 30.77 kg/m2 Comm on [facility] oximetry 2023-11-10 10:10:00 96 % Commo n [facility] blood pressure systolic 2023-11-10 10:10:00 126 mm[Hg] Common [facility] blood pressure diastolic 2023-11-10 10:10:00 70 mm[Hg] Common [facility] height 2023-08-11 11:20:00 60.5 [in_i] Comm on [facility] weight 2023-08-11 11:20:00 163.8 [lb_av] Co [facility] bmi 2023-08-11 11:20:00 31.46 kg/m2 Comm on [facility] height 2023-06-10 08:10:00 60.5 [in_i] Comm on [facility] weight 2023-06-10 08:10:00 163.8 [lb_av] Co [facility] temperature 2023-06-10 08:10:00 97.6 [degF] Com mon [facility] bmi 2023-06-10 08:10:00 31.46 kg/m2 Comm on [facility] oximetry 2023-06-10 08:10:00 97 % Commo n [facility] respiratory rate 2023-06-10 08:10:00 18 /min Common [facility] blood pressure systolic 2023-06-10 08:10:00 127 mm[Hg] [facility] blood pressure diastolic 2023-06-10 08:10:00 70 mm[Hg] [facility] height 2023-06-10 08:20:00 60.5 [in_i] Comm on [facility] weight 2023-06-10 08:20:00 163.8 [lb_av] Co [facility] temperature 2023-06-10 08:20:00 97.6 [degF] Com [facility] bmi 2023-06-10 08:20:00 31.46 kg/m2 Comm on [facility] oximetry 2023-06-10 08:20:00 97 % Commo n [facility] respiratory rate 2023-06-10 08:20:00 18 /min Common [facility] blood pressure systolic 2023-06-10 08:20:00 127 mm[Hg] Common [facility] blood pressure diastolic 2023-06-10 08:20:00 70 mm[Hg] Common [facility] height 2023-04-08 08:00:00 60.5 [in_i] Comm on [facility] weight 2023-04-08 08:00:00 165.6 [lb_av] Co mmon [facility] temperature 2023-04-08 08:00:00 97.5 [degF] Com [facility] bmi 2023-04-08 08:00:00 31.81 kg/m2 Comm on [facility] oximetry 2023-04-08 08:00:00 97 % Commo n [facility] respiratory rate 2023-04-08 08:00:00 16 /min [facility] blood pressure systolic 2023-04-08 08:00:00 138 mm[Hg] Common [facility] blood pressure diastolic 2023-04-08 08:00:00 68 mm[Hg] Common [facility] height 2023-02-19 11:30:00 60.5 [in_i] Comm on [facility] weight 2023-02-19 11:30:00 165.6 [lb_av] Co [facility] temperature 2023-02-19 11:30:00 97.7 [degF] Com [facility] bmi 2023-02-19 11:30:00 31.81 kg/m2 Comm on [facility] oximetry 2023-02-19 11:30:00 97 % Commo n [facility] respiratory rate 2023-02-19 11:30:00 17 /min Common [facility] blood pressure systolic 2023-02-19 11:30:00 139 mm[Hg] Common [facility] blood pressure diastolic 2023-02-19 11:30:00 65 mm[Hg] Common [facility] height 2023-01-07 09:40:00 60.5 [in_i] Comm on [facility] weight 2023-01-07 09:40:00 165.0 [lb_av] Co mmon [facility] temperature 2023-01-07 09:40:00 97.7 [degF] Com [facility] bmi 2023-01-07 09:40:00 31.69 kg/m2 Comm on [facility] oximetry 2023-01-07 09:40:00 98 % Commo n [facility] respiratory rate 2023-01-07 09:40:00 17 /min [facility] blood pressure systolic 2023-01-07 09:40:00 138 mm[Hg] Common [facility] blood pressure diastolic 2023-01-07 09:40:00 72 mm[Hg] Common [facility] height 2022-11-08 10:30:00 60.5 [in_i] Comm on [facility] weight 2022-11-08 10:30:00 165.1 [lb_av] Co mmon [facility] temperature 2022-11-08 10:30:00 97.0 [degF] Com mon [facility] bmi 2022-11-08 10:30:00 31.71 kg/m2 Comm on [facility] oximetry 2022-11-08 10:30:00 98 % Commo n [facility] respiratory rate 2022-11-08 10:30:00 18 /min Common [facility] blood pressure systolic 2022-11-08 10:30:00 131 mm[Hg] [facility] blood pressure diastolic 2022-11-08 10:30:00 68 mm[Hg] Common [facility] height 2022-08-22 15:20:00 60.5 [in_i] Comm on [facility] weight 2022-08-22 15:20:00 166 [lb_av] Comm on [facility] bmi 2022-08-22 15:20:00 31.88 kg/m2 Comm on [facility] Systolic blood pressure 2022-08-10 19:46:00 165 mm[Hg] [facility] Diastolic blood pressure 2022-08-10 19:46:00 73 mm[Hg] [facility] Heart rate 2022-08-10 19:45:00 101 /min [facility] 2022-08-10 19:45:00 37 Yseika [facility] Respiratory rate 2022-08-10 19:45:00 18 /min [facility] Body height 2022-08-10 19:45:00 154.9 cm [facility] Body weight 2022-08-10 19:45:00 75.479 kg [facility] BMI 2022-08-10 19:45:00 31.44 kg/m2 [facility] Oxygen saturation in Arterial blood by Pulse oximetry 2022-08-10 19:45:00 98 /min [facility] height 2022-07-25 13:30:00 60.5 [in_i] Comm on [facility] weight 2022-07-25 13:30:00 166.0 [lb_av] Co mmon [facility] temperature 2022-07-25 13:30:00 96.9 [degF] Com mon [facility] bmi 2022-07-25 13:30:00 31.88 kg/m2 Comm on [facility] oximetry 2022-07-25 13:30:00 99 % Commo n [facility] respiratory rate 2022-07-25 13:30:00 18 /min Common [facility] blood pressure systolic 2022-07-25 13:30:00 134 mm[Hg] [facility] blood pressure diastolic 2022-07-25 13:30:00 70 mm[Hg] Common [facility] height 2022-04-24 13:00:00 60.5 [in_i] Comm on [facility] weight 2022-04-24 13:00:00 168 [lb_av] Comm on [facility] temperature 2022-04-24 13:00:00 97.6 [degF] Com [facility] bmi 2022-04-24 13:00:00 32.27 kg/m2 Comm on [facility] oximetry 2022-04-24 13:00:00 96 % Commo n [facility] respiratory rate 2022-04-24 13:00:00 16 /min Common [facility] blood pressure systolic 2022-04-24 13:00:00 130 mm[Hg] Common [facility] blood pressure diastolic 2022-04-24 13:00:00 64 mm[Hg] Common [facility] height 2022-04-24 14:15:00 60.5 [in_i] Comm on [facility] weight 2022-04-24 14:15:00 168 [lb_av] Comm on [facility] temperature 2022-04-24 14:15:00 97.6 [degF] Com mon [facility] bmi 2022-04-24 14:15:00 32.27 kg/m2 Comm on [facility] oximetry 2022-04-24 14:15:00 96 % Commo n [facility] respiratory rate 2022-04-24 14:15:00 16 /min Common [facility] blood pressure systolic 2022-04-24 14:15:00 130 mm[Hg] [facility] blood pressure diastolic 2022-04-24 14:15:00 64 mm[Hg] [facility] height 2022-01-23 10:10:00 61 [in_i] Commo n [facility] weight 2022-01-23 10:10:00 171.0 [lb_av] Co mmon [facility] temperature 2022-01-23 10:10:00 97.9 [degF] Com mon [facility] bmi 2022-01-23 10:10:00 32.31 kg/m2 Comm on [facility] oximetry 2022-01-23 10:10:00 96 % Commo n [facility] respiratory rate 2022-01-23 10:10:00 17 /min [facility] blood pressure systolic 2022-01-23 10:10:00 135 mm[Hg] [facility] blood pressure diastolic 2022-01-23 10:10:00 77 mm[Hg] [facility] Procedures Procedure Date / Time Performed Performing Clinician Source ASSIGNMENT OF BENEFITS 2022-08-10 19:23:36 Docto r Unassigned, [place] [facility] Fixation of Vagina 2022-04-30 00:00:00 [facility] En[facility] Start Date/Time End Date/Time Encounter Type Admission Type Attending Clinicians Care Facility Care Department Encounter ID Source 2024-09-27 15:09:00 [id number] [facility] 2024-06-24 10:58:01 [facility] [id number] [facility] 2024-06-04 13:38:00 [facility] [id number] [facility] 2024-05-31 09:15:00 Outpatient Blair, Jc STLMLC STLC [id number] [facility] 2024-02-23 09:49:00 Outpatient Blair, Jc STLMLC ST[facility] [id number] [facility] 2024-02-04 15:18:00 Outpatient Blair, Jc STLC ST[facility] [id number] [facility] 2024-02-03 16:32:00 Outpatient Blair, Jc STLC STLC [id number] [facility] [place] [facility] 2023-11-10 16:42:01 Outpatient Blair, Jc STLC STLC [id number] [facility] [place] [facility] 2023-11-06 10:35:01 Outpatient Blair, Jc STLC STLC [id number] [facility] [place] [facility] 2023-04-08 07:58:00 Outpatient Blair, Jc STLC STLC [id number] [facility] 2023-02-18 15:32:01 Outpatient Blair, Jc STLC STLC [id number] [facility] 2023-01-15 11:25:00 Outpatient Blair, Jc STLC STLC [id number] [facility] 2022-11-06 10:00:04 Outpatient Blair, Jc STLC STLC [id number] [facility] 2022-08-22 15:53:02 Outpatient Blair, Jc STLC STLC [id number] [facility] [place] [facility] 2022-07-23 13:53:02 Outpatient Blair, Jc STLC STLC [id number] [facility] 2022-01-23 10:07:03 Outpatient Blair, Jc STLC STLC [id number] [facility] 2024-10-07 00:00:00 2024-10-07 00:00:00 Brianda Kumar, INSPECTOR PRECISION: [address] [place], [place] [address], [place] [address] , Ph. [facility] - GC_GCBZW_La rhiannon Rene* [id number] [facility] 2024-09-29 00:00:00 2024-09-29 00:00:00 (TEL) STLMLC STLMLC [id number] [facility] 2024-09-28 00:00:00 2024-09-28 00:00:00 (TEL) STLMLC STLMLC [id number] [facility] 2024-09-27 00:00:00 2024-09-27 00:00:00 (TEL) STLMLC STLMLC [id number] [facility] 2024-09-27 00:00:00 2024-09-27 00:00:00 (TEL) STLMLC STLMLC [id number] [facility] 2024-09-27 00:00:00 2024-09-27 00:00:00 (TEL) STLMLC STLMLC [id number] [facility] 2024-09-09 11:00:00 2024-09-09 11:45:08 Office Visit [facility]eyton [facility] [id number] [facility]ree[facility] 2024-09-09 10:55:32 2024-09-09 11:45:08 Outpatient Elective PEYTON JOY [facility] [id number] [facility] 2024-09-03 00:00:00 2024-09-03 00:00:00 OFFICE VISIT ESTAB PT LEVEL 4 STLMLC STLMLC [id number] [facility] 2024-08-13 00:00:00 2024-08-13 00:00:00 (TEL) STLMLC STLMLC [id number] [facility] 2024-08-10 00:00:00 2024-08-10 00:00:00 OFFICE VISIT ESTAB PT LEVEL 4 STLMLC STLC [id number] [facility] 2024-07-08 00:00:00 2024-07-08 00:00:00 (TEL) STLC STLC [id number] [facility] 2024-07-01 09:50:00 2024-07-01 10:21:36 Office Visit Peyton [facility] [id number] [facility] 2024-07-01 09:36:41 2024-07-01 10:21:36 Outpatient Elect[email or web address] [id number] [facility] 2024-06-29 00:00:00 2024-06-29 00:00:00 (TEL) STLC STLC [id number] [facility] 2024-06-25 00:00:00 2024-06-25 00:00:00 OFFICE VISIT ESTAB PT LEVEL 3 STLC STLC [id number] [facility] 2024-06-24 00:00:00 2024-06-24 00:00:00 [facility] [id number] [facility] 2024-06-15 00:00:00 2024-06-15 00:00:00 Marry Mathis MD: [address] [place], [place] [address], [place] [address] , Ph. [facility] - GC[facility]GCBZW_[facility]* [id number] [facility] 2024-06-08 00:00:00 2024-06-08 00:00:00 [facility]EL) [facility] [id number] [facility] 2024-06-07 00:00:00 2024-06-07 00:00:00 (TEL) STLMLC STLMLC [id number] [facility] 2024-06-04 00:00:00 2024-06-04 00:00:00 (TEL) STLMLC STLMLC [id number] [facility] 2024-06-04 00:00:00 2024-06-04 00:00:00 OFFICE VISIT ESTAB PT LEVEL 3 STLMLC STLMLC [id number] [facility] 2024-05-31 00:00:00 2024-05-31 00:00:00 SUB ANNUAL [facility] VIS[facility] STLMLC STLMLC [id number] [facility] 2024-05-31 00:00:00 2024-05-31 00:00:00 (TEL) STLMLC STLMLC [id number] [facility] 2024-05-20 00:00:00 2024-05-20 00:00:00 (TEL) STLMLC STLMLC [id number] [facility] 2024-04-27 00:00:00 2024-04-27 00:00:00 OFFICE VISIT ESTAB PT LEVEL 4 STLMLC STLMLC [id number] [facility] 2024-04-23 10:00:00 2024-04-23 11:00:00 Annual D2Me Elba Tamayo [id number] [facility] 2024-04-20 00:00:00 2024-04-20 00:00:00 (TEL) STLMLC STLMLC [id number] [facility] 2024-03-23 00:00:00 2024-03-23 00:00:00 (TEL) STLMLC STLMLC [id number] [facility] 2024-03-18 09:30:00 2024-03-18 10:18:56 Office Visit Peyton Joy [facility] [id number] Breezy [facility] 2024-03-18 09:25:04 2024-03-18 10:18:56 Outpatient Elective PEYTON JOY [facility] [id number] [facility] 2024-02-23 00:00:00 2024-02-23 00:00:00 (TEL) STLMLC STLMLC [id number] [facility] 2024-02-20 00:00:00 2024-02-20 00:00:00 (TEL) STLMLC STLMLC [id number] [facility] 2024-02-17 00:00:00 2024-02-17 00:00:00 (TEL) STLMLC STLMLC [id number] [facility] 2024-02-07 00:00:00 2024-02-07 00:00:00 (TEL) STLMLC STLMLC [id number] [facility] 2024-02-06 00:00:00 2024-02-06 00:00:00 OFFICE VISIT ESTAB PT LEVEL 4 STLMLC STLMLC [id number] [facility] 2024-02-06 00:00:00 2024-02-06 00:00:00 (TEL) STLMLC STLMLC [id number] [facility] 2024-02-03 00:00:00 2024-02-03 00:00:00 (TEL) STLMLC STLMLC [id number] [facility] 2024-02-03 00:00:00 2024-02-03 00:00:00 (TEL) STLMLC STLMLC [id number] [facility] 2024-01-14 00:00:00 2024-01-14 00:00:00 (TEL) STLMLC STLMLC [id number] [facility] 2023-11-18 00:00:00 2023-11-18 00:00:00 (TEL) STLMLC STLMLC [id number] [facility] 2023-11-18 00:00:00 2023-11-18 00:00:00 OFFICE VISIT ESTAB PT LEVEL 4 STLMLC STLMLC [id number] [facility] 2023-11-12 00:00:00 2023-11-12 00:00:00 (TEL) STLMLC STLMLC [id number] [facility] 2023-11-10 00:00:00 2023-11-10 00:00:00 OFFICE VISIT ESTAB PT LEVEL 4 STLMLC STLMLC [id number] [facility] 2023-10-16 00:00:00 2023-10-16 00:00:00 Outpatient GC_GCBZW_Ka diyala_S PRIV PRIV [id number] [facility] 2023-10-11 00:00:00 2023-10-11 00:00:00 Outpatient GC_GCBZW_Ka diyala_S PRIV PRIV [id number] [facility] 2023-09-29 00:00:00 2023-09-29 00:00:00 Outpatient GC_GCBZW_Ka diyala_S PRIV PRIV [id number] [facility] 2023-09-24 00:00:00 2023-09-24 00:00:00 (TEL) STLMLC STLMLC [id number] [facility] 2023-09-02 00:00:00 2023-09-02 00:00:00 (TEL) STLMLC STLMLC [id number] [facility] 2023-08-18 00:00:00 2023-08-18 00:00:00 (TEL) STLMLC STLMLC [id number] [facility] 2023-08-11 00:00:00 2023-08-11 00:00:00 OFFICE VISIT ESTAB PT LEVEL 3 STLMLC STLMLC [id number] [facility] 2023-08-11 00:00:00 2023-08-11 00:00:00 (TEL) STLMLC STLMLC [id number] [facility] 2023-08-11 00:00:00 2023-08-11 00:00:00 (TEL) STLMLC STLMLC [id number] [facility] 2023-07-18 00:00:00 2023-07-18 00:00:00 Outpatient GC_GCBZW_Ka diyala_S [facility] [id number] [facility] 2023-06-10 00:00:00 2023-06-10 00:00:00 OFFICE VISIT ESTAB PT LEVEL 4 STLMLC STLMLC [id number] [facility] 2023-06-10 00:00:00 2023-06-10 00:00:00 (TEL) STLMLC STLMLC [id number] [facility] 2023-06-10 00:00:00 2023-06-10 00:00:00 SUB ANNUAL [facility] VISIT STLMLC STLMLC [id number] [facility] 2023-04-08 00:00:00 2023-04-08 00:00:00 OFFICE VISIT ESTAB PT LEVEL 3 STLMLC STLMLC [id number] [facility] 2023-04-07 00:00:00 2023-04-07 00:00:00 (TEL) STLMLC STLMLC [id number] [facility] 2023-02-20 00:00:00 2023-02-20 00:00:00 Outpatient Williams_V DMG DMG [id number] [facility] 2023-02-19 00:00:00 2023-02-19 00:00:00 OFFICE VISIT ESTAB PT LEVEL 4 STLMLC STLMLC [id number] [facility] 2023-01-15 00:00:00 2023-01-15 00:00:00 (TEL) STLMLC STLMLC [id number] [facility] 2023-01-07 00:00:00 2023-01-07 00:00:00 OFFICE VISIT ESTAB PT LEVEL 4 STLMLC STLMLC [id number] [facility] 2023-01-06 00:00:00 2023-01-06 00:00:00 (TEL) STLMLC STLMLC [id number] [facility] 2022-11-28 00:00:00 2022-11-28 00:00:00 (TEL) STLMLC STLMLC [id number] [facility] 2022-11-28 00:00:00 2022-11-28 00:00:00 (TEL) STLMLC STLMLC [id number] [facility] 2022-11-08 00:00:00 2022-11-08 00:00:00 OFFICE VISIT ESTAB PT LEVEL 4 STLMLC STLMLC [id number] [facility] 2022-10-18 00:00:00 2022-10-18 00:00:00 (TEL) STLMLC STLMLC [id number] [facility] 2022-09-19 00:00:00 2022-09-19 00:00:00 Outpatient Fulminar_S DMG DMG [id number] [facility] 2022-09-19 00:00:00 2022-09-19 00:00:00 Outpatient Fulminar_S DMG DMG [id number] [facility] 2022-08-22 00:00:00 2022-08-22 00:00:00 OFFICE VISIT EST PT LEVEL 3 STLMLC STLMLC [id number] [facility] 2022-08-12 00:00:00 2022-08-12 00:00:00 (TEL) STLMLC STLMLC [id number] [facility] 2022-08-10 13:20:00 2022-08-10 14:26:52 Outpatient FABIAN JENKINS III [facility] [id number] [facility] 2022-08-10 13:20:00 2022-08-10 13:40:00 Urgent Care Fabian Melo Unknown, Attending [facility]USTOS[facility] [id number] [facility] 2022-08-10 00:00:00 2022-08-10 00:00:00 Orders Only Doctor Unassigned, [place] [facility] [id number] [facility] 2022-07-31 00:00:00 2022-07-31 00:00:00 (TEL) STLC STLC [id number] [facility] 2022-07-25 00:00:00 2022-07-25 00:00:00 OFFICE VISIT ESTAB PT [facility]EL 4 [facility] [id number] [facility] 2022-07-16 00:00:00 2022-07-16 00:00:00 (TEL) STLC STLC [id number] [facility] 2022-07-12 00:00:00 2022-07-12 00:00:00 (TEL) STLC STLC [id number] [facility] 2022-05-20 00:00:00 2022-05-20 00:00:00 Outpatient Williams_V [facility] [id number] [facility] 2022-04-24 00:00:00 2022-04-24 00:00:00 OFFICE VISIT ESTAB PT LEVEL 4 STLC STLC [id number] [facility] 2022-04-24 00:00:00 2022-04-24 00:00:00 SUB ANNUAL [facility] [id number] [facility] 2022-04-05 08:10:00 2022-04-05 08:10:00 Outpatient BWilliams [facility] [id number] [facility] 2022-02-20 00:00:00 2022-02-20 00:00:00 (TEL) STLMLC STLMLC [id number] [facility] 2022-02-04 00:00:00 2022-02-04 00:00:00 (TEL) STLMLC STLMLC [id number] [facility] 2022-01-23 00:00:00 2022-01-23 00:00:00 OFFICE VISIT ESTAB PT LEVEL 4 STLMLC STLMLC [id number] [facility] 2022-01-23 00:00:00 2022-01-23 00:00:00 (TEL) STLMLC STLMLC [id number] [facility] 2021-12-10 20:00:00 2021-12-10 21:00:00 CAV Laura Gonzáles [id number] [facility] 2021-10-23 06:54:00 2021-10-23 06:54:00 Outpatient BWilliams [facility] [id number] [facility] 2021-09-19 01:04:00 2021-09-19 01:04:00 Outpatient BWilliams [facility] [place] [id number] [facility] 2021-08-01 12:01:00 2021-08-01 12:01:00 [facility] [id number] [facility] 2021-01-02 10:00:00 2021-01-02 10:00:00 Outpatient DEEDEE MORALES [facility] [id number] [facility] 2020-12-12 15:50:00 2020-12-12 15:50:00 Outpatient DEEDEE MORALES [facility] [id number] [facility] 2020-09-17 13:16:13 2020-09-17 13:36:13 Laboratory Only Lab, Adc Fam Umeshb Carolyn Alvarez [facility] [address] [id number] [facility] 2020-09-17 13:16:13 2020-09-17 13:36:13 Laboratory Only Lab, Adc Fam Pob I [facility] [address] [id number] 2020-09-17 13:00:00 2020-09-17 13:00:00 Outpatient R KIMMY ALVAREZ [facility] [id number] [facility] 2020-09-17 10:00:00 2020-09-17 10:00:00 Outpatient R [facility] [id number] [facility] Results Test Description Test Time Test Comments Results Result Co [facility] [id number] 00:00:00* Test Item Value Reference Range Interpretation Comme nts FERRITIN (test code = 08221-1) 143 NG/ML See_Comment [Automated messa ge] The system which generated this result transmitted reference range: 13-200 NG/ML. The reference range was not used to interpret this result as normal/abnormal. HEMOGLOBIN A1c (test code = 4548-4) 5.8 % See_Comment H [Automated messa ge] The system which generated this result transmitted reference range: 4.2-5.6 %. The reference range was not used to interpret this result as normal/abnormal. CALC LDL CHOL (test code = 49885-0) 124 MG/DL See_Comment H [Automated messa ge] The system which generated this result transmitted reference range: <100 MG/DL. The reference range was not used to interpret this result as normal/abnormal. CHOLESTEROL (test code = 2093-3) 195 MG/DL See_Comment [Automated messa ge] The system which generated this result transmitted reference range: <200 MG/DL. The reference range was not used to interpret this result as normal/abnormal. HDL CHOLESTEROL (test code = 2085-9) 50 MG/DL See_Comment [Automated messa ge] The system which generated this result transmitted reference range: >39 MG/DL. The reference range was not used to interpret this result as normal/abnormal. RISK RATIO LDL/HDL (test code = 14548-5) 2.48 RATIO See_Comment [Automated message] The system which generated this result transmitted reference range: <3.22 RATIO. The reference range was not used to interpret this result as normal/abnormal. TRIGLYCERIDES (test code = 2571-8) 107 MG/DL See_Comment [Automated messa ge] The system which generated this result transmitted reference range: <150 MG/DL. The reference range was not used to interpret this result as normal/abnormal. BASOPHILS (test code = 01718-2) 0.6 % DIAGNOSIS: (test code = 14334-2) (NOTE) COMMENTS (test code = 09315-6) (NOTE) EOSINOPHILS (test code = 01450-9) 2.2 % HEMATOCRIT (test code = 95345-7) 34.9 % See_Comment [Automated messa ge] The system which generated this result transmitted reference range: 34.0-45.0 %. The reference range was not used to interpret this result as normal/abnormal. HEMOGLOBIN (test code = 718-7) 11.8 G/DL See_Comment [Automated messa ge] The system which generated this result transmitted reference range: 11.5-15.5 G/DL. The reference range was not used to interpret this result as normal/abnormal. LYMPHOCYTES (test code = 69428-8) 18.9 % MCH (test code = 49050-0) 28.7 PG See_Comment [Automated messa ge] The system which generated this result transmitted reference range: 25.0-33.0 PG. The reference range was not used to interpret this result as normal/abnormal. MCHC (test code = 35434-0) 33.8 G/DL See_Comment [Automated messa ge] The system which generated this result transmitted reference range: 31.0-36.0 G/DL. The reference range was not used to interpret this result as normal/abnormal. MCV (test code = 36758-2) 84.9 fL See_Comment [Automated messa ge] The system which generated this result transmitted reference range: 80.0-99.0 fL. The reference range was not used to interpret this result as normal/abnormal. MICROSCOPIC DESCRIPTION: (test code = 43312-1) (NOTE) MONOCYTES (test code = 32542-5) 5.8 % NEUTROPHILS (test code = 23680-8) 71.1 % NUCLEATED RBCS (test code = 42008-1) 0.0 /100 WBC'S See_Comment [Automated message] The system which generated this result transmitted reference range: 0.0 /100 WBC'S. The reference range was not used to interpret this result as normal/abnormal. PATHOLOGIST: (test code = 79613-9) (NOTE) PLATELET COUNT (test code = 43851-1) 197 K/UL See_Comment [Automated messa ge] The system which generated this result transmitted reference range: 130-400 K/UL. The reference range was not used to interpret this result as normal/abnormal. RBC (test code = 53375-5) 4.11 M/UL See_Comment [Automated messa ge] The system which generated this result transmitted reference range: 3.80-5.40 M/UL. The reference range was not used to interpret this result as normal/abnormal. RDW (test code = 08560-7) 13.1 % See_Comment [Automated messa ge] The system which generated this result transmitted reference range: 11.5-15.0 %. The reference range was not used to interpret this result as normal/abnormal. WBC (test code = 18476-6) 5.0 K/UL See_Comment [Automated messa ge] The system which generated this result transmitted reference range: 3.5-11.0 K/UL. The reference range was not used to interpret this result as normal/abnormal. ALBUMIN, URINE, RANDOM (test code = 47413-7) 0.7 MG/DL NOT ESTAB MG/DL CALC ALBUMIN/CREAT, RND (test code = 57359-4) 8 MG/G See_Comment [Automated messa ge] The system which generated this result transmitted reference range: <30 MG/G. The reference range was not used to interpret this result as normal/abnormal. CREATININE, URINE, CONC. (test code = 2161-8) 88.3 MG/DL NOT ESTAB MG/DL ALBUMIN (test code = 1751-7) 4.5 G/DL See_Comment [Automated messa ge] The system which generated this result transmitted reference range: 3.5-5.2 G/DL. The reference range was not used to interpret this result as normal/abnormal. ALKALINE PHOSPHATASE (test code = 6768-6) 82 U/L See_Comment [Automated message] The system which generated this result transmitted reference range: 40-142 U/L. The reference range was not used to interpret this result as normal/abnormal. BILIRUBIN, TOTAL (test code = 1975-2) 0.3 MG/DL See_Comment [Automated messa ge] The system which generated this result transmitted reference range: <=1.2 MG/DL. The reference range was not used to interpret this result as normal/abnormal. BUN (test code = 3094-0) 26 MG/DL See_Comment H [Automated messa ge] The system which generated this result transmitted reference range: 8-23 MG/DL. The reference range was not used to interpret this result as normal/abnormal. CALCIUM (test code = 86763-2) 9.8 MG/DL See_Comment [Automated [employer]] The system which generated this result transmitted reference range: 8.5-10.5 MG/DL. The reference range was not used to interpret this result as normal/abnormal. CALC A/G RATIO (test code = 1759-0) 2.4 RATIO See_Comment [Automated messa ge] The system which generated this result transmitted reference range: 1.0-2.6 RATIO. The reference range was not used to interpret this result as normal/abnormal. CALC BUN/CREAT (test code = 3097-3) 27 RATIO See_Comment [Automated [employer]] The system which generated this result transmitted reference range: 6-28 RATIO. The reference range was not used to interpret this result as normal/abnormal. CALC GLOBULIN (test code = 02415-5) 1.9 G/DL See_Comment [Automated messa ge] The system which generated this result transmitted reference range: 1.9-3.7 G/DL. The reference range was not used to interpret this result as normal/abnormal. CARBON DIOXIDE (test code = 1963-8) 29 MEQ/L See_Comment [Automated messa ge] The system which generated this result transmitted reference range: 19-31 MEQ/L. The reference range was not used to interpret this result as normal/abnormal. CHLORIDE (test code = 2075-0) 101 MEQ/L See_Comment [Automated messa ge] The system which generated this result transmitted reference range: 95-107 MEQ/L. The reference range was not used to interpret this result as normal/abnormal. CREATININE (test code = 2160-0) 0.96 MG/DL See_Comment [Automated messa ge] The system which generated this result transmitted reference range: 0.60-1.30 MG/DL. The reference range was not used to interpret this result as normal/abnormal. eGFR (2020 CKD-EPI) (test code = 61791-6) 64 ML/MIN/1.73 See_Comment [Automated message] The system which generated this result transmitted reference range: >60 ML/MIN/1.73. The reference range was not used to interpret this result as normal/abnormal. GLUCOSE (test code = 1558-6) 103 MG/DL See_Comment H [Automated messa ge] The system which generated this result transmitted reference range: 70-99 MG/DL. The reference range was not used to interpret this result as normal/abnormal. POTASSIUM (test code = 2823-3) 3.8 MEQ/L See_Comment [Automated messa ge] The system which generated this result transmitted reference range: 3.5-5.4 MEQ/L. The reference range was not used to interpret this result as normal/abnormal. PROTEIN, TOTAL (test code = 2885-2) 6.4 G/DL See_Comment [Automated messa ge] The system which generated this result transmitted reference range: 6.1-8.3 G/DL. The reference range was not used to interpret this result as normal/abnormal. AST (test code = 1920-8) 17 U/L See_Comment [Automated messa ge] The system which generated this result transmitted reference range: 9-40 U/L. The reference range was not used to interpret this result as normal/abnormal. ALT (test code = 1742-6) 14 U/L See_Comment [Automated messa ge] The system which generated this result transmitted reference range: 5-40 U/L. The reference range was not used to interpret this result as normal/abnormal. SODIUM (test code = 2951-2) 143 MEQ/L See_Comment [Automated messa ge] The system which generated this result transmitted reference range: 133-146 MEQ/L. The reference range was not used to interpret this result as normal/abnormal. urinalysis, [id number] 13:51:04* Test Item Value Reference Range Interpretation Comme nts Leukocytes (test code = Leukocytes) Negative Nitrite (test code = Nitrite) negative Urobilinogen (test code = Urobilinogen) Normal Protein (test code = Protein) Negative pH (test code = pH) 6.0 Blood (test code = Blood) Non-Hemolyzed: Trace Specific [place] (test code = Specific [place]) 1.010 Ketone (test code = Ketone) Negative Bilirubin (test code = Bilirubin) Negative Glucose (test code = Glucose) Negative Appearance (test code = Appearance) Slightly Cloudy Color (test code = Color) Yellow [facility] MedicalINDICATED URINE [id number] 00:00:00* Test Item Value Reference Range Interpretation Comme nts APPEARANCE (test code = 5767-9) CLEAR CLEAR BACTERIA (test code = 02557-9) NONE SEEN NONE SEEN BILIRUBIN (test code = 5770-3) NEGATIVE NEGATIVE CASTS, HYALINE (test code = 43357-6) TRACE NONE-TRACE COLOR (test code = 5778-6) YELLOW YELLOW-STRAW EPITHELIAL CELLS (test code = 47137-4) 6-10 /HPF See_Comment [Automated [employer]] The system which generated this result transmitted reference range: 0-10 /HPF. The reference range was not used to interpret this result as normal/abnormal. GLUCOSE (test code = 5792-7) NEGATIVE NEGATIVE KETONES (test code = 5797-6) NEGATIVE NEGATIVE LEUKOCYTE ESTERASE (test code = 5799-2) 2+ NEGATIVE A NITRITE (test code = 5802-4) NEGATIVE NEGATIVE OCCULT BLOOD (test code = 16593-5) NEGATIVE NEGATIVE pH (test code = 5803-2) 5.0 5.0-9.0 PROTEIN (test code = 47285-3) NEGATIVE NEGATIVE RED BLOOD CELLS (test code = 42577-3) 0-2 /HPF See_Comment [Automated [employer]] The system which generated this result transmitted reference range: 0-2 /HPF. The reference range was not used to interpret this result as normal/abnormal. SPECIFIC GRAVITY (test code = 5811-5) 1.021 1.005-1.035 UROBILINOGEN (test code = 92230-3) 0.2 MG/DL See_Comment [Automated messa ge] The system which generated this result transmitted reference range: <=2.0 MG/DL. The reference range was not used to interpret this result as normal/abnormal. WHITE BLOOD CELLS (test code = 08586-6) >50 /HPF See_Comment A [Automated messa ge] The system which generated this result transmitted reference range: 0-5 /HPF. The reference range was not used to interpret this result as normal/abnormal. [id number] 00:00:00* Test Item Value Reference Range Interpretation Comme nts FERRITIN (test code = 54343-3) 117 NG/ML See_Comment [Automated messa ge] The system which generated this result transmitted reference range: 13-200 NG/ML. The reference range was not used to interpret this result as normal/abnormal. STREP A [id number] 00:00:[id number] 00:00:00* Test Item Value Reference Range Interpretation Comme nts FERRITIN (test code = 20206-6) 112 NG/ML See_Comment [Automated messa ge] The system which generated this result transmitted reference range: 13-200 NG/ML. The reference range was not used to interpret this result as normal/abnormal. [id number] 00:00:00* Test Item Value Reference Range Interpretation Comme nts FERRITIN (test code = 44336-2) 109 NG/ML See_Comment [Automated messa ge] The system which generated this result transmitted reference range: 13-200 NG/ML. The reference range was not used to interpret this result as normal/abnormal. 3D SCR MADELEINE BILAT W/CAD3D SCR MADELEINE BILAT W/CADPOC, COVID 19 Antigen + Flu by Afshan POC, COVID 19 Antigen + Flu by Afshan
--- NOTE | 2024-10-18 12:00 | RAD REPORT ---
EXAMINATION: ONE VIEW CHEST XR CLINICAL INDICATION: TRAUMA TECHNIQUE: Frontal chest projection is submitted. Examination is limited by patient positioning and t echnique. COMPARISON: 02/06/2024 FINDINGS: The lungs are well inflated and clear. The heart is normal in size. No displaced fractures identified . IMPRESSION: No acute intrathoracic abnormalities.
--- NOTE | 2024-10-18 12:01 | RAD REPORT ---
EXAMINATION: XR RIGHT WRIST CLINICAL INDICATION: Swelling;Pain RIGHT TECHNIQUE: Multiple projections of the right wrist were obtained. COMPARISON: No prior exam. FINDINGS: Mild radiocarpal joint arthritic changes are present. No acute fracture or dislocation seen .
[2024-10-18] MEDS ORDERED: IBUPROFEN 400 MG TAB ONE (12:26)
--- NOTE | 2024-10-18 12:44 | ER ---
Nurse's Notes [facility] Name: Tori Sylvester Age: 69 yrs Sex: Female : 1955 Arrival Date: 10/18/2024 Time: 10:49 Bed 10 Private MD: Diagnosis: Fall on same level, unspecified;Pain in right wrist Presentation: 10/18 11:10 Chief complaint: Patient states: she fell Friday10/15/24, on her driveway due to the ap3 concrete being uneven. patient states she fell onto her right knee, stomach, chest, right arm, and right side of her forehead. patient attempted to see her PCP but was sent to the ED for further evaluation. patient currently rates her pain as a 6/10 on the pain scale. Coronavirus screen: At this time, the client does not indicate any symptoms associated with coronavirus-19. Ebola Screen: No symptoms or risks identified at this time. Initial Sepsis Screen: Does the patient meet any 2 criteria? No. Patient's initial sepsis screen is negative. Does the patient have a suspected source of infection? No. Patient's initial sepsis screen is negative. Risk Assessment: Do you want to hurt yourself or someone else? Patient reports no desire to harm self or others. Onset of symptoms was October 15, 2024. Mechanism of Injury: Fall from standing position. 11:10 Method Of Arrival: Ambulatory ap3 11:10 Acuity: CHER 3 ap3 Triage Assessment: 11:13 General: Appears in no apparent distress. Behavior is calm, cooperative, appropriate ap3 for age. Pain: Complains of pain in face, chest, abdomen, right arm and right leg Pain currently is 6 out of 10 on a pain scale. Pain began suddenly, 10/15/24. Neuro: Level of Consciousness is awake, alert, obeys commands, Oriented to person, place, time, situation, Appropriate for age Gait is steady, Speech is normal. Cardiovascular: Patient's skin is warm and dry. Respiratory: Airway is patent Respiratory effort is even, unlabored, Respiratory pattern is regular, symmetrical. Derm: Wound noted forehead and right leg. Historical: - Allergies: 11:12 Levofloxacin; ap3 - Home Meds: 12:45 diltiazem HCl 240 mg Oral Tb24 once daily [Active]; gemfibrozil 600 mg Oral tab 1 tab 2 jl7 times per day [Active]; losartan-hydrochlorothiazide 100-12.5 mg Oral tab 1 tab once daily [Active]; pantoprazole 40 mg Oral TbEC 1 tab once daily [Active]; rosuvastatin 5 mg oral tablet [Active]; Tradjenta 5 mg oral tablet [Active]; - PMHx: 11:12 Asthma; High Cholesterol; GERD; Hypertension; Uterine prolapse; ap3 - Immunization history:: Client reports receiving the 2nd dose of the Covid vaccine, Flu vaccine is up to date. - Infectious Disease History:: Denies. - Social history:: Smoking status: Patient denies any tobacco usage or history of. Screenin:14 [facility] ED Fall Risk Assessment (Adult) History of falling in the last 3 months, ap3 including since admission Yes- fall prone (multiple falls) (3 pts) Confusion or Disorientation No (0 pts) Intoxicated or Sedated No (0 pts) Impaired Gait No (0 pts) Mobility Assist Device Used No (0 pt) Altered Elimination No (0 pt) Score/Fall Risk Level 3 or more points = High Risk Oriented to surroundings, Maintained a safe environment, Educated pt \T\ family on fall prevention, incl call for assistance when getting out of bed, Assessed \T\ reinforced patient's understanding of fall precautions, Hourly rounding (assess needs \T\ fall precautionary measures) done, Used ambulatory aids as needed (educated on \T\ assisted with), Used gait belt as appropriate Implemented a Fall Risk Plan of Care, Apply high fall risk patient identification: yellow non skid footwear/ fall signage, Remained w/in arm's length of patient and in sight while toileting, Offered frequent toileting (1:1 observation), Remained with patient while ambulating, Utilized family, sitter, or virtual assistant facility manager as indicated. Abuse screen: Denies threats or abuse. Nutritional screening: No deficits noted. Tuberculosis screening: No symptoms or risk factors identified. Assessment: 12:51 General: Appears in no apparent distress. uncomfortable, Behavior is calm, cooperative, jl7 appropriate for age. Pain: Complains of pain in forehead and chest Pain currently is 6 out of 10 on a pain scale. Neuro: Level of Consciousness is awake, alert, obeys commands, Oriented to person, place, time, situation. Cardiovascular: Patient's skin is warm and dry. Respiratory: Airway is patent Respiratory effort is even, unlabored, Respiratory pattern is regular, symmetrical. Derm: Skin is pink, warm \T\ dry. Vital Signs: 11:10 BP 162 / 69; Pulse 79; Resp 18; Temp 99(O); Pulse Ox 98% on R/A; Weight 71.67 kg; ap3 Height 5 ft. 1 in. ; Pain 6/10; 12:51 BP 155 / 66; Pulse 75; Resp 15; Pulse Ox 98% ; jl7 11:10 Body Mass Index 29.85 (71.67 kg, 154.94 cm) ap3 11:10 Pain Scale: Adult ap3 ED Course: 10:55 Patient arrived in ED. sj2 11:05 Morgan Jasmine FNP-C [facility]. dr5 11:05 Juan Sainz MD is Attending Physician. dr5 11:12 Triage completed. ap3 11:15 Arm band placed on left wrist. ap3 11:34 Chest Single View XRAY In Process Unspecified. EDMS 11:34 Wrist Right 3 View XRAY In Process Unspecified. EDMS 12:22 Hung Chakraborty, RN is Primary Nurse. jl7 12:50 Patient has correct armband on for positive identification. Provided Education on: use jl7 of call stahl. 12:50 No provider procedures requiring assistance completed. Patient did not have IV access jl7 during this emergency room visit. Administered Medications: 12:53 Not Given (Patient Refused): [id number] mg PO once jl7 Medication: 12:50 VIS not applicable for this client. jl7 Outcome: 12:44 Discharge ordered by . dr5 12:50 Discharged to home ambulatory, jl7 12:50 Condition: stable 12:50 Discharge instructions given to patient, Instructed on discharge instructions, follow up and referral plans. medication usage, Demonstrated understanding of instructions, follow-up care, medications, Prescriptions given X 1, 12:52 Patient left the ED. jl7 Signatures: Dispatcher [employer] EDMS Hung Chakraborty, RITO VERAS jl7 Elba Weaver RN RN ap3 Cj Singer sj2 Morgan Jasmine FNP-C MEDICAL PRACTICE ASSISTANT-Cdr5
--- NOTE | 2024-10-18 12:44 | EDPHYS ---
Physician Documentation [facility] Name: Tori Sylvester Age: 69 yrs Sex: Female : 1955 Arrival Date: 10/18/2024 Time: 10:49 Bed 10 Private MD: ED Physician Juan Sainz HPI: 10/18 13:39 This 69 yrs old Female presents to ER via Ambulatory with complaints of Fall dr5 Injury - FOREHEAD. 13:39 Details of fall: The patient fell from an upright position, while standing, and struck dr5 a concrete surface. Onset: The symptoms/episode began/occurred 3 day(s) ago. Patient is a 69-year-old female with history of asthma, hyperlipidemia, GERD, hypertension coming in with bruising to right side of head, right wrist, and chest. Patient states that she was walking on a concrete and slipped and had a mechanical fall. Patient denies loss of consciousness and reports she is having increased bruising.. Historical: - Allergies: 11:12 Levofloxacin; ap3 - Home Meds: 12:45 diltiazem HCl 240 mg Oral Tb24 once daily [Active]; gemfibrozil 600 mg Oral tab 1 tab 2 jl7 times per day [Active]; losartan-hydrochlorothiazide 100-12.5 mg Oral tab 1 tab once daily [Active]; pantoprazole 40 mg Oral TbEC 1 tab once daily [Active]; rosuvastatin 5 mg oral tablet [Active]; Tradjenta 5 mg oral tablet [Active]; - PMHx: 11:12 Asthma; High Cholesterol; GERD; Hypertension; Uterine prolapse; ap3 - Immunization history:: Client reports receiving the 2nd dose of the Covid vaccine, Flu vaccine is up to date. - Infectious Disease History:: Denies. - Social history:: Smoking status: Patient denies any tobacco usage or history of. ROS: 13:39 Constitutional: as per hpi dr5 Exam: 13:39 Constitutional: This is a well developed, well nourished patient who is awake, alert, dr5 and in no acute distress. Head/Face: Normocephalic, atraumatic. Eyes: Pupils equal round and reactive to light, extra-ocular motions intact. Lids and lashes normal. Conjunctiva and sclera are non-icteric and not injected. Cornea within normal limits. Periorbital areas with no swelling, redness, or edema. Neck: Trachea midline, no thyromegaly or masses palpated, and no cervical lymphadenopathy. Supple, full range of motion without nuchal rigidity, or vertebral point tenderness. No Meningismus. Chest/axilla: Normal chest wall appearance and motion. Nontender with no deformity. No lesions are appreciated. Cardiovascular: Regular rate and rhythm with a normal S1 and S2. Normal PMI, no JVD. No pulse deficits. Respiratory: Lungs have equal breath sounds bilaterally, clear to auscultation. No rales, rhonchi or wheezes noted. No increased work of breathing, no retractions or nasal flaring. Back: No spinal tenderness. No costovertebral tenderness. Full range of motion. Skin: Warm, dry with normal turgor. Normal color with no rashes, no lesions, and no evidence of cellulitis. Neuro: Awake and alert, GCS 15, oriented to person, place, time, and situation. Cranial nerves II-XII grossly intact. Motor strength 5/5 in all extremities. Sensory grossly intact. Cerebellar exam normal. Normal gait. 13:39 Musculoskeletal/extremity: Extremities: all appear grossly normal, with no appreciated pain with palpation, pain, swelling, tenderness, 13:39 Skin: injury, contusion(s), that are superficial, of the forehead, Right Wrist, Chest Contusion noted, Vital Signs: 11:10 BP 162 / 69; Pulse 79; Resp 18; Temp 99(O); Pulse Ox 98% on R/A; Weight 71.67 kg; ap3 Height 5 ft. 1 in. ; Pain 6/10; 12:51 BP 155 / 66; Pulse 75; Resp 15; Pulse Ox 98% ; jl7 11:10 Body Mass Index 29.85 (71.67 kg, 154.94 cm) ap3 11:10 Pain Scale: Adult ap3 MDM: 11:06 Medical Screening Exam initiated dr5 13:39 Differential diagnosis: abrasion, contusion, fracture. Data reviewed: vital signs, dr5 nurses notes, radiologic studies, plain films. I considered the following discharge prescriptions or medication management in the emergency department Medications were administered in the Emergency Department. See MAR. Historians other than the Patient: Spouse/Significant Other: . Care significantly affected by the following chronic conditions: Asthma, high cholesterol, GERD, hypertension. Care significantly affected by the following Social Determinants of Health: Poor access to healthcare and/or lack of insurance, Poor access to transportation, Problems related to employment. Counseling: I had a detailed discussion with the patient and/or guardian regarding the historical points, exam findings, and any diagnostic results supporting the discharge/admit diagnosis, the presence of at least one elevated blood pressure reading (>120/80) during this emergency department visit, radiology results, the need for outpatient follow up, for definitive care, a family practitioner, a orthopedic surgeon, to return to the emergency department if symptoms worsen or persist or if there are any questions or concerns that arise at home. Medication response: ibuprofen administration has improved the patient's pain. Response to treatment: the patient's symptoms have markedly improved after treatment. ED course: No fracture noted on x-ray of right wrist, and no abnormality noted on chest x-ray. Normal neurological exam deferred be doing CT scan with low likelihood intracranial hemorrhage. Recommended patient alternate Tylenol and Motrin as needed for pain and fever. Recommended patient follow-up with primary care doctor this week and/or orthopedics for right wrist if needed. I did explain to her that the pain may continue for the next 3 to 4 days given injury and bruising progression. All questions answered. Recommended resting at home and using ice as needed. 10/18 11:21 Order name: Chest Single View XRAY; Complete Time: 12:02 dr5 10/18 11:21 Order name: Wrist Right 3 View XRAY; Complete Time: 12:02 dr5 Administered Medications: 12:53 Not Given (Patient Refused): mg PO once jl7 Disposition Summary: 10/18/24 12:44 Discharge Ordered Notes: Location: Home dr5 Condition: Stable dr5 Diagnosis - Fall on same level, unspecified dr5 - Pain in right wrist dr5 Followup: dr5 - With: Emergency Department - When: As needed - Reason: Worsening of condition Followup: dr5 - With: Private Physician - When: 1 - 2 days - Reason: Recheck today's complaints, Continuance of care, Re-evaluation by your physician Discharge Instructions: - Discharge Summary Sheet dr5 - Fall Prevention in the Home, Adult dr5 - Wrist Pain, Adult dr5 Forms: - Medication Reconciliation Form dr5 - Patient Portal Instructions dr5 - Leadership Thank You Letter dr5 Prescriptions: - Cephalexin 500 mg Oral capsule - take 1 capsule ORAL route every 6 hours for 5 days; 20 capsule; Refills: 0, dr5 Product Selection Permitted Addendum: 10/19/2024 14:19 Co-signature as Attending Physician, Juan Sainz MD I agree with the assessment and c lundberg plan of care. Signatures: Dispatcher [employer] Juan Henry MD MD cha Leal, Jahala, RN RN jl7 Elba Weaver RN RN ap3 Morgan Jasmine, PARKING METER ATTENDANT-C PARKING METER ATTENDANT-[facility]5
[2024-10-18 15:18] VITALS: TEMP 99; O2SAT 98
[2024-10-18 15:19] VITALS: BP 155/66
== END 2024-10-18 12:52 | disposition home or self-care (01) ==
LOC: ER 10:49
DX: M25.531 Pain in right wrist (principal); S00.83XA Contusion of other part of head, initial encounter; W18.30XA Fall on same level, unspecified, initial encounter
CPT/HCPCS: 71045; 99283